=== PATIENT | female | born 1955 ===

== ENCOUNTER 2023-01-13 14:53 | Outpatient (CLI) | payer MEDICARE, SELFPAY ==
--- NOTE | ~2023-01-13 | XR_ITS ---
EXAMINATION: XR chest 2V 01/13/2023 15:32 INDICATION: Hemoptysis PROCEDURE: 2 view chest COMPARISON: No prior studies for comparison. FINDINGS: The lungs are clear. The cardiomediastinal silhouette is within normal limits. There are no pleural effusions. There is no pneumothorax suspected. IMPRESSION: 1: NO ACUTE CARDIOPULMONARY DISEASE. Reviewed, dictated and finalized at location L. ER MACHINE OPERATOR
[2023-01-13 15:32] LABS: Basophils Absolute Auto 0.1 K/mm3 (0.0-0.1); Basophils Percent Auto 0.7 % (0.2-1.2); Eosinophils Absolute Auto 0.3 K/mm3 (0-0.3); Eosinophils Percent Auto 1.6 % (0-4.4); Hematocrit 42.8 % (37.0-47.0); Hemoglobin 14.1 g/dL (12.0-15.0); Immature Granulocyte Absolute 0.06 K/mm3 (0.00-0.031); Immature Granulocyte Percent A 0.4 % (0-0.5); Lymphocytes Percent Auto 23.3 % (18.3-44.2); Mean Corpuscular HGB Conc 32.9 g/dl (32-36); Mean Corpuscular Hemoglobin 29.3 pg (26-34); Mean Platelet Volume 9.7 fl (7.4-10.4); Monocytes Absolute Auto 1.1 K/mm3 (0.1-0.6); Neutrophils Absolute Auto 10.7 K/mm3 (1.3-6.7); Platelet Count Result 421 k/mm3 (150-375); Red Blood Count 4.81 M/mm3 (4.2-5.4); Red Cell Distribution Width 13.9 % (11.5-14.5); White Blood Count 15.9 K/mm3 (4.5-10.0)
[2023-01-13 15:37] LABS: Appearance Urine Clear (Clear); Bacteria Urine None Seen /hpf; Bilirubin Urine Negative (Negative); Blood Urine 1+ (Negative); Color Urine Yellow (Yellow); Glucose Urine UA Negative (Negative); Ketones Urine Negative (Negative); Leukocyte Esterase Ur Negative LEU/UL (Negative); Nitrate Urine Negative (Negative); Non Pathogenic Casts 0-2; Protein Urine Negative (Negative); Specific Grav Ur 1.012 (1.001-1.035); Squamous Epithelial Cell Urine None seen /hpf (Few); Urobilinogen Urine 0.2 mg/dL (<2.0); WBC Urine 0-5 /hpf
[2023-01-13 15:42] LABS: Alanine Aminotransferase 19 U/L (6-35); Albumin Level 4.5 g/dL (3.5-5.1); Alkaline Phosphatase 90 U/L (38-126); Anion Gap 8 mmol/L (8-16); Aspartate Amino Transferase 28 U/L (14-36); Bilirubin,Total 0.6 mg/dL (0.2-1.3); Blood Urea Nitrogen 14 mg/dL (7-17); Calcium 9.4 mg/dL (8.4-10.2); Carbon Dioxide 27 mmol/L (22-30); Chloride 105 mmol/L (98-107); Estimated Glomerular Filt Rate 49; Glucose 87 mg/dL (65-110); Potassium 3.6 mmol/L (3.4-5.0); Sodium 140 mmol/L (137-145)
[2023-01-13 15:52] LABS: Add Urine Microscopic? YES
== END 2023-01-13 14:54 | disposition home or self-care (01) ==
PROVIDERS: PCP Family Medicine; Visit Provider Physician Assistant
DX: R04.2 Hemoptysis (principal); I10 Essential (primary) hypertension; R53.1 Weakness
CPT/HCPCS: 36415; 71046; 80053; 81001; 85025

== ENCOUNTER 2023-02-02 15:26 | Outpatient (CLI) | payer MEDICARE, SELFPAY ==
[2023-02-02 15:52] LABS: Basophils Absolute Auto 0.1 K/mm3 (0.0-0.1); Basophils Percent Auto 0.6 % (0.2-1.2); Eosinophils Absolute Auto 0.2 K/mm3 (0-0.3); Hematocrit 40.3 % (37.0-47.0); Hemoglobin 13.3 g/dL (12.0-15.0); Immature Granulocyte Absolute 0.03 K/mm3 (0.00-0.031); Immature Granulocyte Percent A 0.3 % (0-0.5); Lymphocytes Absolute Auto 4.32 K/mm3 (0.9-3.2); Lymphocytes Percent Auto 44.1 % (18.3-44.2); Mean Corpuscular Hemoglobin 29.1 pg (26-34); Mean Corpuscular Volume 88.2 fl (80-100); Mean Platelet Volume 9.4 fl (7.4-10.4); Monocytes Absolute Auto 0.8 K/mm3 (0.1-0.6); Monocytes Percent Auto 8.4 % (2.6-8.5); Neutrophils Absolute Auto 4.4 K/mm3 (1.3-6.7); Neutrophils Percent Auto 44.6 % (45.5-73.1); Platelet Count Result 411 k/mm3 (150-375); Red Blood Count 4.57 M/mm3 (4.2-5.4); Red Cell Distribution Width 14.2 % (11.5-14.5); White Blood Count 9.8 K/mm3 (4.5-10.0)
== END 2023-02-02 15:27 | disposition home or self-care (01) ==
LOC: ANHLAB 15:31
PROVIDERS: PCP Family Medicine; Visit Provider Physician Assistant
DX: D72.829 Elevated white blood cell count, unspecified (principal); I10 Essential (primary) hypertension
CPT/HCPCS: 36415; 85025

== ENCOUNTER 2023-03-11 15:46 | Outpatient (CLI) | payer MEDICARE, SELFPAY ==
--- NOTE | ~2023-03-11 | XR_ITS ---
EXAMINATION: XR lumbar spine 2-3V DATE: 03/11/2023 16:13 INDICATION: Low back pain. Right-sided sciatica. TECHNIQUE: 3 views of lumbar spine were obtained. COMPARISON: None. FINDINGS: There is 3 mm anterolisthesis of L3 on L4. Vertebral body heights are normal. There is mild ly decreased disc height at L3-L4. There is multilevel facet joint osteoarthritis, moderate to severe in lower lumbar spine. IMPRESSION: 1. Mild lumbar spondylosis. Reviewed, dictated and finalized at location E. GENERATION SPECIALIST IMPRESSION: 1. Mild lumbar spondylosis.
== END 2023-03-11 15:47 | disposition home or self-care (01) ==
LOC: ANHIMG 15:48
PROVIDERS: PCP Family Medicine; Visit Provider Physician Assistant
DX: M54.50 Low back pain, unspecified (principal); M43.06 Spondylolysis, lumbar region
CPT/HCPCS: 72100

== ENCOUNTER 2023-09-14 09:02 | Outpatient (CLI) | payer MEDICARE, SELFPAY ==
[2023-09-14 10:16] LABS: Hematocrit 42.8 % (37.0-47.0); Hemoglobin 14.5 g/dL (12.0-15.0); Mean Corpuscular HGB Conc 33.9 g/dl (32-36); Mean Corpuscular Hemoglobin 29.4 pg (26-34); Mean Corpuscular Volume 86.8 fl (80-100); Mean Platelet Volume 10.1 fl (7.4-10.4); Platelet Count Result 486 k/mm3 (150-375); Red Blood Count 4.93 M/mm3 (4.2-5.4); Red Cell Distribution Width 14.7 % (11.5-14.5)
[2023-09-14 10:38] LABS: Alanine Aminotransferase 16 U/L (6-35); Albumin Level 4.5 g/dL (3.5-5.1); Alkaline Phosphatase 77 U/L (38-126); Anion Gap 10 mmol/L (4-12); Aspartate Amino Transferase 26 U/L (14-36); Bilirubin,Total 0.5 mg/dL (0.2-1.3); Blood Urea Nitrogen 14 mg/dL (7-17); CRP < 0.5 mg/dL (<1.0); Calcium 9.5 mg/dL (8.4-10.2); Carbon Dioxide 30 mmol/L (22-30); Chloride 101 mmol/L (98-107); Cholesterol 246 mg/dL (0-200); Estimated Glomerular Filt Rate > 60; Glucose 83 mg/dL (65-110); HDL Direct 60 mg/dL; Potassium 3.4 mmol/L (3.4-5.0); Sodium 141 mmol/L (137-145); Triglycerides 109 mg/dL (<150)
[2023-09-14 10:47] LABS: LDL Cholesterol Direct 148 mg/dL
[2023-09-14 10:48] LABS: Erythrocyte Sedimentation Rate 1 mm/hr (0-20)
[2023-09-16 09:48] LABS: ANA Cascade Screen NEGATIVE (NEGATIVE)
== END 2023-09-14 09:03 | disposition home or self-care (01) ==
PROVIDERS: PCP Family Medicine; Visit Provider Physician Assistant
DX: Z72.0 Tobacco use (principal); I10 Essential (primary) hypertension; E78.5 Hyperlipidemia, unspecified; D75.839 Thrombocytosis, unspecified; M60.9 Myositis, unspecified
CPT/HCPCS: 36415; 80053; 80061; 85027; 85652; 86038; 86140; 86225; 86235; 86364

== ENCOUNTER 2024-04-12 10:28 | Outpatient (CLI) | payer MEDICARE, SELFPAY ==
[2024-04-12 11:15] LABS: Add Urine Microscopic? YES; Appearance Urine Clear (Clear); Bilirubin Urine Negative (Negative); Blood Urine Negative (Negative); Color Urine Dark Yellow (Yellow); Glucose Urine UA Negative (Negative); Ketones Urine Negative (Negative); Leukocyte Esterase Ur Negative LEU/UL (Negative); Nitrate Urine Negative (Negative); Protein Urine Negative (Negative); Specific Grav Ur 1.015 (1.001-1.035); Urobilinogen Urine 0.2 mg/dL (<2.0); pH Urine 6.5 (5.0-9.0)
[2024-04-12 11:44] LABS: Basophils Absolute Auto 0.1 K/mm3 (0.0-0.1); Basophils Percent Auto 0.6 % (0.2-1.2); Eosinophils Absolute Auto 0.2 K/mm3 (0-0.3); Eosinophils Percent Auto 2.4 % (0-4.4); Hematocrit 41.4 % (37.0-47.0); Hemoglobin 14.2 g/dL (12.0-15.0); Immature Granulocyte Absolute 0.03 K/mm3 (0.00-0.031); Immature Granulocyte Percent A 0.3 % (0-0.5); Lymphocytes Absolute Auto 3.33 K/mm3 (0.9-3.2); Lymphocytes Percent Auto 38.8 % (18.3-44.2); Mean Corpuscular HGB Conc 34.3 g/dl (32-36); Mean Corpuscular Volume 87.3 fl (80-100); Mean Platelet Volume 9.8 fl (7.4-10.4); Monocytes Absolute Auto 0.7 K/mm3 (0.1-0.6); Monocytes Percent Auto 7.8 % (2.6-8.5); Neutrophils Absolute Auto 4.3 K/mm3 (1.3-6.7); Neutrophils Percent Auto 50.1 % (45.5-73.1); Platelet Count Result 449 k/mm3 (150-375); Red Blood Count 4.74 M/mm3 (4.2-5.4); Red Cell Distribution Width 14.4 % (11.5-14.5); White Blood Count 8.6 K/mm3 (4.5-10.0)
[2024-04-12 12:03] LABS: Alanine Aminotransferase 17 U/L (6-35); Albumin Level 4.4 g/dL (3.5-5.1); Alkaline Phosphatase 86 U/L (38-126); Anion Gap 7 mmol/L (4-12); Aspartate Amino Transferase 27 U/L (14-36); Bilirubin,Total 0.7 mg/dL (0.2-1.3); Blood Urea Nitrogen 17 mg/dL (7-17); Calcium 9.7 mg/dL (8.4-10.2); Carbon Dioxide 30 mmol/L (22-30); Chloride 104 mmol/L (98-107); Cholesterol 167 mg/dL (0-200); Estimated Glomerular Filt Rate > 60; Glucose 83 mg/dL (65-110); HDL Direct 62 mg/dL; Potassium 3.6 mmol/L (3.4-5.0); Sodium 141 mmol/L (137-145); Triglycerides 67 mg/dL (<150)
[2024-04-12 12:14] LABS: LDL Cholesterol Direct 79 mg/dL
--- OUTSIDE RECORDS SUMMARY | 2024-04-12 12:16 | XMS_ITS | Referral Summary ---
Author Organization [facility] Address [address] [place] [address] Care Team Providers Care Biodiesel Engine Specialist Name Role Phone Marko Duvall MD Primary Care Provider [phone] Source Comments [facility],non-owned Affiliates and Associated Physician Practices is amultiple site organization consisting of ambulatory clinics and hospital sitesin [place], [place], [place] and [place]. This disclosure is being madepursuant to the Care Everywhere program and may not contain all information available regarding this patient. Last updated 17.[facility] Allergies No known active allergies Medications * Be aware that medications may not be up to date on this document. Alwaysverify current medications with the patient. Medication Sig Dispensed Refills Start Date End Date Status lansoprazole (PREVACID) 30 MG capsule 09/29/2018 Active albuterol HFA (PROVENTIL;VENTOL IN;PROAIR) 108 (90 Base) MCG/ACT inhaler Inhale 2 puffs by mouth every 4 hours 01/18/2020 Active triamterene-hydro CHLOROthiazide (DYAZIDE) 37.5-25 MG capsule Take 1 capsule by mouth once daily 03/15/2020 Active oxyCODONE, immediate release, (ROXICODONE) 5 MG tablet Take 1 (one) tablet by mouth every 6 hours as needed 15 tablet 08/01/2020 Active Additional Information Patient not taking.Reported on 09/03/2020 acetaminophen (TYLENOL) 325 MG tablet Take 2 (two) tablets by mouth every 6 hours Maximum allowable Acetaminophen amount = 4 Grams (4000 mg) / 24 hours. 30 tablet 1 08/01/2020 Active docusate sodium (COLACE) 100 MG capsule Take 1 (one) capsule by mouth 2 times daily 60 capsule 1 08/01/2020 Active polyethylene glycol 3350 (MIRALAX) 17 g packet Take 17 (seventeen) g by mouth once daily as needed for Constipation 60 packet 1 08/01/2020 Active Additional Information Patient not taking.Reported on 09/03/2020 ibuprofen (MOTRIN) 600 MG tablet Take 1 (one) tablet by mouth every 6 hours as needed for Pain 30 tablet 08/01/2020 Active meloxicam (MOBIC) 7.5 MG tablet Take 1 (one) tablet by mouth 2 times daily 30 tablet 08/09/2020 Active Additional Information Patient not taking.Reported on 09/03/2020 diclofenac sodium (VOLTAREN) 1 % gel Apply 2 (two) g to affected area 4 times daily 100 g 08/09/2020 Active Additional Information Patient not taking.Reported on 09/03/2020 estradiol (ESTRACE) 0.1 MG/GM vaginal cream Insert 1g into the vagina nightly for 2 weeks. Then insert 1g into the vagina two times a week thereafter. 1 tube 3 09/03/2020 Active Active Problems Problem Noted Date Diagnosed Date H/O: hysterectomy 07/31/2020 Thrombocythemia 07/13/2020 Allergic rhinitis 03/07/2019 Essential hypertension 03/07/2019 Gastroesophageal reflux disease 03/07/2019 Hyperlipidemia 03/07/2019 Obesity 03/07/2019 Smoker 03/07/2019 Left posterior capsular opacification 01/27/2019 Hiatal hernia 07/07/2017 Lesion of liver 07/07/2017 Chronic obstructive lung disease 01/26/2017 Astigmatism of both eyes 12/03/2016 Overview (05/18/2017): O regulatory upload 12/02 Cataract extraction status of left eye 6 Age-related nuclear cataract of left eye 016 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7 F) 08/09/2020 11:50 AM CDT Respiratory Rate 18 08/09/2020 11:5 0 AM CDT Oxygen Saturation 100% 08/09/2020 11: 50 AM CDT Inhaled Oxygen Concentration - - Weight 85.6 kg (188 lb 12.8 oz) 09/03/2020 1:46 PM CDT Height 161.3 cm (5' 3.5 ) 09/03/2020 1:46 PM CDT Body Mass Index 32.92 09/03/2020 1:46 PM CDT Plan of Treatment Not on file Procedures Procedure Name Priority Date/Time Associated Diagnosis Comments COMPREHENSIVE METABOLIC PANEL STAT 08/09/2020 12:54 PM CDT from Last 3 Months or Most Recently Relevant to Health Maintenance Results * COMPREHENSIVE METABOLIC PANEL (08/09/2020 12:54 PM CDT) Glucose 90 70 - 105 mg/dL 08/09/2020 1:29 PM CDT [facility] Sodium 139 136 - 145 mmol/L 08/09/2020 1:29 PM CDT [facility] Potassium 3.9 3.5 - 5.1 mmol/L 08/09/2020 1:29 PM CDT [facility] Chloride 103 98 - 107 mmol/L 08/09/2020 1:29 PM CDT [facility] CO2 27 23 - 31 mmol/L 08/09/2020 1:29 PM CDT [facility] Calcium 10.3 8.4 - 10.4 mg/dL 08/09/2020 1:29 PM CDT [facility] Anion Gap 9 8 - 18 mmol/L 08/09/2020 1:29 PM CDT [facility] BUN 13 9.8 - 20.1 mg/dL 08/09/2020 1:29 PM CDT [facility] Creatinine 0.92 0.57 - 1.11 mg/dL 08/09/2020 1:29 PM CDT [facility] Alkaline Phosphatase 86 40 - 150 U/L 08/09/2020 1:29 PM CDT [facility] ALT 19 0 - 61 U/L 08/09/2020 1:29 PM CDT [facility] AST 14 5 - 34 U/L 08/09/2020 1:29 PM CDT [facility] Protein Total 7.7 6.4 - 8.3 gm/dL 08/09/2020 1:29 PM CDT [facility] Albumin 4.2 3.2 - 4.6 gm/dL 08/09/2020 1:29 PM CDT [facility] Bilirubin Total 0.3 0.2 - 1.2 mg/dL 08/09/2020 1:29 PM CDT [facility] eGFR by MDRD >60 >60 mL/min/1.7 3m2 08/09/2020 1:29 PM CDT [facility] eGFR by MDRD >60 >60 mL/min/1.7 3m2 08/09/2020 1:29 PM CDT [facility] Blood BLOOD SPECIMEN / Unknown Venipuncture / Unknown 08/09/2020 12:54 PM CDT 08/09/2020 1:11 PM CDT Nidia Melendez PA-C LAB - CHEMISTRY OR DERABLES [facility] [address] [place] [address] from Last 3 Months or Most Recently Relevant to Health Maintenance Care Teams Biodiesel Engine Specialist Relationship Specialty Start Date End Date Marko Duvall MD [address] [facility] [address] [place] [phone] PCP - General 10/09/14
--- OUTSIDE RECORDS SUMMARY | 2024-04-12 12:16 | XMS_ITS | Encounter Summary ---
Author Organization [facility] Address [address] [place] [address] Care Team Providers Care Cable Installer Repairer Name Role Phone Unavailable Primary Care Provider Unavailabl e Prior Encounters Date Type Department Care Team Description 08/12/2021 1:00 PM CDT Office Visit [facility] [address] [place] [address] Chandu Rao DDS 07/24/2021 1:00 PM CDT Office Visit [facility] [address] [place] [address] Tiffanie Cho, [facility] 04/24/2021 1:00 PM BUSINESS LEADER Office Visit [facility] [address] [place] [address] Crystal Pimentel, DIANA 04/24/2021 1:00 PM BUSINESS LEADER Office Visit [facility] [address] [place] [address] Tiffanie Cho, [facility] 01/23/2021 Travel 01/23/2021 3:00 PM BUSINESS LEADER Office Visit [facility] [address] [place] [address] Tiffanie Cho [facility] 10/24/2020 Travel 10/24/2020 2:00 PM CDT Office Visit [facility] [address] [place] [address] Tiffanie Cho, [facility] 09/25/2020 2:30 PM CDT Office Visit [facility] [address] [place] [address] ChoTiffanie, TALYA 09/25/2020 Travel 09/25/2020 2:00 PM CDT Office Visit [facility] [address] [place] [address] Crystal Pimentel, DMD Last Filed Vital Signs Vital Sign Reading Time Taken Comments Blood Pressure 124/72 07/24/2021 12:56 PM CDT Pulse 77 07/24/2021 12:56 PM CDT Temperature 35.9 C (96.6 F) 01/23/2021 3:16 PM BUSINESS LEADER Respiratory Rate - - Oxygen Saturation - - Inhaled Oxygen Concentration - - Weight - - Height - - Body Mass Index - - Plan of Treatment Not on file Procedures Procedure Name Priority Date/Time Associated Diagnosis Comments 8 ML RESIN-BASED COMPOSITE - TWO SURFACES, ANTERIOR Routine 08/12/2021 1:00 PM CDT 9 ML RESIN-BASED COMPOSITE - TWO SURFACES, ANTERIOR Routine 08/12/2021 1:00 PM CDT ORAL HYGIENE INSTRUCTIONS Routine 2021 1:00 PM CDT PERIO MAINTENANCE Routine 07/24/2021 1:0 0 PM CDT PERIODIC ORAL EVALUATION - ESTABLISHED PATIENT Routine 04/24/2021 1:00 PM BUSINESS LEADER ORAL HYGIENE INSTRUCTIONS Routine 2021 1:00 PM BUSINESS LEADER PERIO MAINTENANCE Routine 04/24/2021 1:0 0 PM BUSINESS LEADER ORAL HYGIENE INSTRUCTIONS Routine 2020 3:00 PM BUSINESS LEADER PERIO MAINTENANCE Routine 01/23/2021 3:0 0 PM BUSINESS LEADER LL SHRUTI DECON ONE TO THREE TEETH/QUAD Routine 10/24/2020 2:00 PM CDT LL ANTIBACT IRR/QUAD Routine 10/24/2020 2:00 PM CDT LL PERIODONTAL SCALING AND ROOT PLANING - ONE TO THREE TEETH PER QUADRANT Routine 10/24/2020 2:00 PM CDT ORAL HYGIENE INSTRUCTIONS Routine 2020 2:00 PM CDT TOPICAL APPLICATION OF FLUORIDE VARNISH Routine 10/24/2020 2:00 PM CDT UL SHRUTI DECON/QD Routine 10/24/2020 2:00 PM CDT UL ANTIBACT IRR/QUAD Routine 10/24/2020 2:00 PM CDT UL PERIODONTAL SCALING AND ROOT PLANING - FOUR OR MORE TEETH PER QUADRANT Routine 10/24/2020 2:00 PM CDT LR SHRUTI DECON ONE TO THREE TEETH/QUAD Routine 09/25/2020 2:30 PM CDT UR SHRUTI DECON ONE TO THREE TEETH/QUAD Routine 09/25/2020 2:30 PM CDT LR ANTIBACT IRR/QUAD Routine 09/25/2020 2:30 PM CDT UR ANTIBACT IRR/QUAD Routine 09/25/2020 2:30 PM CDT LR PERIODONTAL SCALING AND ROOT PLANING - ONE TO THREE TEETH PER QUADRANT Routine 09/25/2020 2:30 PM CDT UR PERIODONTAL SCALING AND ROOT PLANING - ONE TO THREE TEETH PER QUADRANT Routine 09/25/2020 2:30 PM CDT INTRAORAL PHOTO Routine 09/25/2020 2:00 PM CDT INTRAORAL PHOTO Routine 09/25/2020 2:00 PM CDT INTRAORAL PHOTO Routine 09/25/2020 2:00 PM CDT INTRAORAL PHOTO Routine 09/25/2020 2:00 PM CDT PANORAMIC RADIOGRAPHIC IMAGE Routine 09/25/2020 2:00 PM CDT INTRAORAL - COMPREHENSIVE SERIES OF RADIOGRAPHIC IMAGES Routine 09/25/2020 2:00 PM CDT COMPREHENSIVE ORAL EVALUATION - NEW OR ESTABLISHED PATIENT Routine 09/25/2020 2:00 PM CDT Visit Diagnoses Not on file Insurance [facility] PPO
--- OUTSIDE RECORDS SUMMARY | 2024-04-12 12:16 | XMS_ITS | Clinical Summary ---
Author Organization [facility] Address [address] [place] [address] Care Team Providers Care Supervisor Spring Up Name Role Phone Unavailable Primary Care Provider Unavailabl e Allergies No known active allergies Medications acetaminophen (TYLENOL) 325 mg tablet Take 650 mg by mouth. 1 Active albuterol HFA (PROVENTIL HFA;VENTOLIN HFA) 90 mcg/actuation inhaler Inhale 2 puffs. 0 Active diclofenac (VOLTAREN) 1 % topical gel Apply 2 g topically. 1 Active docusate sodium (COLACE) 100 mg capsule Take 100 mg by mouth twice a day. 1 Active estradioL (ESTRACE) 0.01 % (0.1 mg/gram) vaginal cream Insert 1g into the vagina nightly for 2 weeks. Then insert 1g into the vagina two times a week thereafter. 1 Active ibuprofen (ADVIL,MOTRIN) 600 mg tablet Take 600 mg by mouth every 6 (six) hours if needed. 1 Active meloxicam (MOBIC) 7.5 mg tablet Take 7.5 mg by mouth twice a day. 1 Active oxyCODONE (ROXICODONE) 5 mg immediate release tablet Take 5 mg by mouth every 6 (six) hours if needed. 1 Active polyethylene glycol (GLYCOLAX) 17 gram/dose powder Take 17 g by mouth 1 (one) time each day if needed. 1 Active triamterene-hyd rochlorothiazid (DYAZIDE) 37.5-25 mg capsule Take 1 capsule by mouth 1 (one) time each day. 1 Active lansoprazole (PREVACID) [address] capsule 2 Active levoFLOXacin (LEVAQUIN) 500 mg tablet 1 Active methylPREDNISol one (MEDROL DOSPAK) 4 mg tablet follow package directions 1 Active naproxen (NAPROSYN) 500 mg tablet Take 500 mg by mouth 2 (two) times a day if needed. 2 Active Active Problems Problem Noted Date Diagnosed Date H/O: hysterectomy 07/31/2020 Thrombocythemia 07/13/2020 Allergic rhinitis 03/07/2019 Essential hypertension 03/07/2019 Gastroesophageal reflux disease 03/07/2019 Hyperlipidemia 03/07/2019 Obesity 03/07/2019 Smoker 03/07/2019 Left posterior capsular opacification 01/27/2019 Hiatal hernia 07/07/2017 Lesion of liver 07/07/2017 Chronic obstructive lung disease (HCC) 7 Astigmatism of both eyes 12/03/2016 Overview (09/25/2020): IMO regulatory upload 12/02 Cataract extraction status of left eye 6 Age-related nuclear cataract of left eye 016 Pellucid marginal degeneration of cornea, 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 Social History Tobacco Use Types Packs/Day Years Used Date Smoking Tobacco: Every Day Cigarettes 1 5 Cigars Smokeless Tobacco: Never Alcohol Use Standard Drinks/Week Comments Never 0 (1 standard drink = 0.6 oz pur e alcohol) Comments Unknown Sex and Gender Information Value Date Recorded Sex Assigned at Not on file Legal Sex Female 1:47 PM PDT Gender Identity Not on file Sexual Orientation Not on file Last Filed Vital Signs Vital Sign Reading Time Taken Comments Blood Pressure 124/72 07/24/2021 12:56 PM CDT Pulse 77 07/24/2021 12:56 PM CDT Temperature 35.9 C (96.6 F) 01/23/2021 3:16 PM HOSPITAL NURSING ASSISTANT Respiratory Rate - - Oxygen Saturation - - Inhaled Oxygen Concentration - - Weight - - Height - - Body Mass Index - - Plan of Treatment Health Maintenance Due Date Last Done Comments Dental X-Ray: Bitewings 03/29/2021 09/25/2020 Periodontal Maintenance 10/25/2021 07/25/19 22, 04/24/2021, 01/23/2021 Dental Oral Exam 10/26/2021 04/24/2021, 09/25/2020 Scaling and Root Planing 11/07/2022 021, 10/24/2020, 09/25/2020, Additional history exists Dental X-Ray: Full Mouth 09/27/2023 09/25/2020 Dental X-Ray: Panoramic 09/27/2023 09/25/2020 Meningococcal B Vaccine Aged Out No l onger eligible based on patient's age to complete this topic Procedures Procedure Name Priority Date/Time Associated Diagnosis Comments PERIO MAINTENANCE Routine 07/24/2021 1:0 0 PM CDT PERIODIC ORAL EVALUATION - ESTABLISHED PATIENT Routine 04/24/2021 1:00 PM HOSPITAL NURSING ASSISTANT UL PERIODONTAL SCALING AND ROOT PLANING - FOUR OR MORE TEETH PER QUADRANT Routine 10/24/2020 2:00 PM CDT PANORAMIC RADIOGRAPHIC IMAGE Routine 09/25/2020 2:00 PM CDT INTRAORAL - COMPREHENSIVE SERIES OF RADIOGRAPHIC IMAGES Routine 09/25/2020 2:00 PM CDT from Last 3 Months or Most Recently Relevant to Health Maintenance Insurance [facility] P[facility]
--- OUTSIDE RECORDS SUMMARY | 2024-04-12 12:16 | XMS_ITS | Clinical Summary ---
Author Organization [facility] Address [address] [place] [address] Care Team Providers Care Rotor Casting Machine Operator Name Role Phone Marko Duvall MD Primary Care Provider Source Comments [facility],non-owned Affiliates and Associated Physician Practices is amultiple site organization consisting of ambulatory clinics and hospital sitesin [place], [place], [place] and [place]. This disclosure is being madepursuant to the Care Everywhere program and may not contain all information available regarding this patient. Last updated 17.[facility] Allergies No known active allergies Medications * [...] marginal degeneration of cornea, 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 Family History Medical History Relation Name Comments CVA Brother 1 Heart Disease Brother 2 Heart Failure Brother 2 Heart Surgery Brother 2 Cancer - Colon Father Hypertension Mother Heart Disease Other None Known Sister Status: d Diabetes Neg Hx Glaucoma Neg Hx Macular Degeneration Neg Hx Relation Name Status Comments Brother 1 Brother 2 Father Mother Other Sister Social History Tobacco Use Types Packs/Day Years [...] 09/03/2020 1:46 PM CDT Plan of Treatment Health Maintenance Due Date Last Done Comments BONE DENSITY TESTING 1954 COLOGUARD (AGES 45-75) - COL ON CA SCREENING 1954 COLON MONITORING 1954 COLONOSCOPY - COLON CA SCREENING 1954 CT COLONOGRAPHY - COLON CA SCREENING 1954 Colorectal Cancer Screening 1954 FIT - COLON CA SCREENING 1954 FLEX SIG - COLON CA SCREENING 1954 LIPID TESTING 1954 MAMMOGRAM 1954 HEPATITIS C SCREENING 07/14/1972 DTAP/TDAP/TD VACCINES (1 - Tdap) 1973 PNEUMOCOCCAL VACCINE 50+ (1 of 2 - PCV) 1973 ZOSTER VACCINE (1 of 2) 2004 Respiratory Syncytial Virus (RSV) Vaccine Pt: or over 60 yrs (1 - Risk 60-74 years 1-dose series) 2014 SCREENING FOR DIABETES 08/10/2023 08/09/2020 COVID-19 VACCINE (1 - 2023-2 5 season) 2023 INFLUENZA VACCINE (#1) 2023 DEPRESSION SCREENING 02/17/2024 HEPATITIS B VACCINE Aged Out No longe r eligible based on patient's age to complete this topic HIB VACCINE Aged Out No longer eligi ble based on patient's age to complete this topic HPV VACCINE Aged Out No longer eligi ble based on patient's age to complete this topic MENINGOCOCCAL (Group B) VACCINE Aged Out No longer eligible based on patient's age to complete this topic MENINGOCOCCAL VACCINE Aged Out No nathanael sudeep eligible based on patient's age to complete this topic Procedures Procedure Name Priority Date/Time Associated Diagnosis Comments COMPREHENSIVE METABOLIC PANEL STAT 08/09/2020 12:54 PM CDT from Last 3 Months or Most Recently Relevant to Health Maintenance Results * COMPREHENSIVE METABOLIC PANEL (08/09/2020 12:54 PM CDT) Pathologist [facility] Glucose 90 70 - 105 mg/dL 08/09/2020 1:29 PM CDT [facility] Sodium 139 136 - 145 mmol/L 08/09/2020 1:29 PM CDT [facility] Potassium 3.9 3.5 - 5.1 mmol/L 08/09/2020 1:29 PM CDT [facility] Chloride 103 98 - 107 mmol/L 08/09/2020 1:29 PM CDT [facility] CO2 27 23 - 31 mmol/L 08/09/2020 1:29 PM CDT [facility] Calcium 10.3 8.4 - 10.4 mg/dL 08/09/2020 1:29 PM CDT [facility] Anion Gap 9 8 - 18 mmol/L 08/09/2020 1:29 PM CDT [facility] BUN 13 9.8 - 20.1 mg/dL 08/09/2020 1:29 PM CDT [facility] Creatinine 0.92 0.57 - 1.11 mg/dL 08/09/2020 1:29 PM CDT [facility] Alkaline Phosphatase 86 40 - 150 [...] 3m2 08/09/2020 1:29 PM CDT [facility] Blood BLOOD SPECIMEN / Unknown Venipuncture / Unknown 08/09/2020 12:54 PM CDT 08/09/2020 1:11 PM CDT Nidia Melendez PA-C LAB - CHEMISTRY OR DERABLES Performing Organization Address City/State/[facility] Co de Phone Number [facility] [address] [place] [address] from Last 3 Months or Most Recently Relevant to Health Maintenance Care Teams Rotor Casting Machine Operator Relationship Specialty Start Date End Date Marko Duvall MD [address] [facility] [address] [place] [id number] PCP - General 10/09/14
--- OUTSIDE RECORDS SUMMARY | 2024-04-12 12:16 | XMS_ITS | CONTINUITY OF CARE DOCUMENT ---
Author Name yaya javier Address Unknown Organization [facility] Address [address] [facility] [address] [place] [address] Phone [phone] Care Team Providers Care Second Helper Name Role Phone Mick HALEY, Higinio Unavailable NEETU HALEY, ALLYSON Phillips Unavailable ALLYSON DE ANDA MD Unavailable INSURANCE PROVIDERS Payer name Policy type / Coverage type [place] red democrat ID AARP MEDICARE ADVANTAGE HMO-POS HMO [id number]
== END 2024-04-12 10:29 | disposition home or self-care (01) ==
PROVIDERS: PCP Family Medicine; Visit Provider Physician Assistant
DX: E78.5 Hyperlipidemia, unspecified (principal); I10 Essential (primary) hypertension; R10.9 Unspecified abdominal pain
CPT/HCPCS: 36415; 80053; 80061; 81001; 85025

== ENCOUNTER 2024-08-15 10:54 | Outpatient (CLI) | payer MEDICARE, SELFPAY ==
[2024-08-15 11:16] LABS: Basophils Absolute Auto 0.1 K/mm3 (0.0-0.1); Basophils Percent Auto 0.9 % (0.2-1.2); Eosinophils Absolute Auto 0.3 K/mm3 (0-0.3); Eosinophils Percent Auto 3.5 % (0-4.4); Hematocrit 42.8 % (37.0-47.0); Hemoglobin 14.5 g/dL (12.0-15.0); Immature Granulocyte Absolute 0.02 K/mm3 (0.00-0.031); Immature Granulocyte Percent A 0.2 % (0-0.5); Lymphocytes Absolute Auto 3.14 K/mm3 (0.9-3.2); Mean Corpuscular HGB Conc 33.9 g/dl (32-36); Mean Corpuscular Hemoglobin 29.8 pg (26-34); Mean Corpuscular Volume 88.1 fl (80-100); Mean Platelet Volume 9.2 fl (7.4-10.4); Monocytes Absolute Auto 0.6 K/mm3 (0.1-0.6); Monocytes Percent Auto 6.8 % (2.6-8.5); Neutrophils Percent Auto 49.6 % (45.5-73.1); Platelet Count Result 444 k/mm3 (150-375); Red Blood Count 4.86 M/mm3 (4.2-5.4); Red Cell Distribution Width 13.3 % (11.5-14.5); White Blood Count 8.1 K/mm3 (4.5-10.0)
--- OUTSIDE RECORDS SUMMARY | 2024-08-15 11:32 | XMS_ITS | Encounter Summary ---
Author Organization [facility] Address [address] [place] [address] Care Team Providers Care Printed Circuit Boards Router Name Role Phone Unavailable Primary Care Provider Unavailabl e Prior Encounters Date Type Department Care Team Description 08/12/2021 1:00 PM CDT Office Visit [facility] [address] [place] [address] Chandu Rao DDS 07/24/2021 1:00 PM CDT Office Visit [facility] [address] [place] [address] Tiffanie Cho, [facility] 04/24/2021 1:00 PM PRE SALES TECHNICAL CONSULTANT Office Visit [facility] [address] [place] [address] Crystal Pimentel, [facility] 04/24/2021 1:00 PM PRE SALES TECHNICAL CONSULTANT Office Visit [facility] [address] [place] [address] Tiffanie Cho, [facility] 01/23/2021 Travel 01/23/2021 3:00 PM PRE SALES TECHNICAL CONSULTANT Office Visit [facility] [address] [place] [address] Tiffanie Cho, [facility] 10/24/2020 Travel 10/24/2020 2:00 PM CDT Office Visit [facility] [address] [place] [address] Tiffanie Cho, [facility] 09/25/2020 2:30 PM CDT Office Visit [facility] [address] [place] [address] Tiffanie Cho, TALYA 09/25/2020 Travel 09/25/2020 2:00 PM CDT Office Visit [facility] [place] [phone] Crystal Pimentel, DMD Last Filed Vital Signs Vital Sign Reading Time Taken Comments Blood Pressure 124/72 07/24/2021 12:56 PM CDT Pulse 77 07/24/2021 12:56 PM CDT Temperature 35.9 C (96.6 F) 01/23/2021 3:16 PM PRE SALES TECHNICAL CONSULTANT Respiratory Rate - - Oxygen Saturation - [...] - ESTABLISHED PATIENT Routine 04/24/2021 1:00 PM PRE SALES TECHNICAL CONSULTANT ORAL HYGIENE INSTRUCTIONS Routine 2021 1:00 PM PRE SALES TECHNICAL CONSULTANT PERIO MAINTENANCE Routine 04/24/2021 1:0 0 PM PRE SALES TECHNICAL CONSULTANT ORAL HYGIENE INSTRUCTIONS Routine 2020 3:00 PM PRE SALES TECHNICAL CONSULTANT PERIO MAINTENANCE Routine 01/23/2021 3:0 0 PM PRE SALES TECHNICAL CONSULTANT LL SHRUTI DECON ONE TO THREE TEETH/QUAD [...] CDT Visit Diagnoses Not on file Insurance [facility] PPO
--- OUTSIDE RECORDS SUMMARY | 2024-08-15 11:32 | XMS_ITS | Clinical Summary ---
Author Organization [facility] (Formerly [facility]) Rhona goss Keelydorie Address [address] [place] [address] Care Team Providers Care Title Insurance Agent Name Role Phone Unavailable Primary Care Provider Unavailabl e Allergies No known active allergies Medications atorvastatin (LIPITOR) 10 mg tablet Take by mouth. 04/02/2022 Active lansoprazole (PREVACID SoluTab) 30 mg Tablet,Rapid Dissolve, DR Take by mouth. 04/02/2022 Active triamterene-hydr oCHLOROthiazide (DYAZIDE) 37.5-25 mg capsule Take by mouth. 04/07/2022 Active Active Problems No known active problems Encounters Date Type Department Care Team Description 08/15/2024 10:30 AM CDT Office Visit [facility] ([facility] Oncology and Hematology - Juan Carlos [address] [place] [address] [place] [id number] Bola Kaiser MD Essential thrombocytosis (CMS/HCC) (Primary Dx) from Last 3 Months Family History Medical History Relation Name Comments Heart Disease Brother 1 Heart Disease Brother 2 Heart Disease Brother 3 No Known Problems Child Prostate Cancer Father Relation Name Status Comments Brother 1 Alive Brother 2 Alive Brother 3 Alive Child Alive Father Mother Alive Sister Alive Social History Tobacco Use Types Packs/Day Years Used Date Smoking Tobacco: Every Day Cigars Smokeless Tobacco: Never Tobacco Cessation:Ready to Q uit: Not Asked; Counseling Given: Not Answered Alcohol Use Standard Drinks/Week Comments Yes 0 (1 standard drink = 0.6 oz pur e alcohol) occasional Comments Unknown Sex and Gender Information Value Date Recorded Sex Assigned at Not on file Legal Sex Female 12:02 PM [employer] Gender Identity Not on file Sexual Orientation Not on file Last Filed Vital Signs Vital Sign Reading Time Taken Comments Blood Pressure 131/81 08/15/2024 10:10 AM CDT Pulse 84 08/15/2024 10:10 AM CDT Temperature 36.5 C (97.7 F) 08/15/2024 10:10 AM CDT Respiratory Rate 15 08/15/2024 10:10 AM CDT Oxygen Saturation 96% 08/15/2024 10:10 AM CDT Inhaled Oxygen Concentration - - Weight 79.5 kg (175 lb 4.8 oz) 08/15/2024 10:10 AM CDT Height 160 cm (5' 3) 08/15/2024 10:10 AM CDT Body Mass Index 31.05 08/15/2024 10:10 AM CDT Plan of Treatment Upcoming Encounters Date Type Department Care Team (Late st Contact Info) Description 08/29/2024 4:30 PM CDT Telephone Check Up [facility] ([facility] Oncology and Hematology [facility] [address] [facility] [address] [place] [phone] Bola Kaiser MD [address] [facility] [address] [place] [address] Health Maintenance Due Date Last Done Comments DTAP/TDAP/TD VACCINES (1 - Tdap) 1973 BREAST CANCER SCREENING 1994 COLORECTAL SCREENING 07/20/1999 Colorectal Cancer Screening 07/20/1999 FIT-DNA Q 3 years 07/20/1999 FIT/FOBT Q 1 year 07/20/1999 Flex Sig/CT Colonography Q 5 years 07/20/1999 PNEUMOCOCCAL VACCINE 50+ YEARS (1 of 1 - PCV) 07/20/19 05 ZOSTER VACCINE (1 of 2) 2004 OSTEOPOROSIS SCREENING 07/20/2019 INFLUENZA VACCINE (#1) 2023 Medicare [place] Prev entative Visit/Annual Wellness Visit 02/17/2024 RSV VACCINE (60+ or ) (1 - 1-dose 75+ series) 2029 Insurance [facility] [id number]
--- OUTSIDE RECORDS SUMMARY | 2024-08-15 11:32 | XMS_ITS | Data Portability ---
Author Organization [place] [facility], Main Office Address [address] [place] [address] Care Team Providers Care Vendor Specialist Name Role Phone HEVER ELIZONDO Primary Care Provider HEVER ELIZONDO Referring Provider Assessment Encounter Date Assessment Date Assessment LastModified by Organization Details LastModified Time 05/27/2023 05/27/2023 67-year-old patient presents today with bilateral shoulder pain that has been going on since last February but has recently gotten worse in the last month. She states she lifted a case of water and has had increased pain ever since. she presented to her primary care physician who ordered physical therapy, she was going 3x a week but she states her arms hurt too much to continue it. She has also tried naproxen, oral steroids, and now an antibiotic. Review of systems per patient questionnaire Imaging: X-rays reviewed show no acute bony abnormalities, no fracture. Preserved joint spaces throughout. Physical exam: No pain with palpitation around the shoulders. Range of motion 140/30/ back pocket bilaterally. 5/5 rotator cuff strength. Positive Mark's, Neer's Calzada. Sensation intact throughout. We discussed the options today could include continuing physical therapy, cortisone injection, or MRI for surgical repair. She is unsure if she wants to return to physical therapy. She has a fear of needles and does not want a cortisone injection. She also is not interested in an MRI. We discussed that she can think about these treatment options and let us know what she would like to try. We can see her back as needed for pain. She is in agreement with this plan. [email or web address] Not available 05/28/2023 21:28:37 06/05/2023 06/05/2023 The patient has bilateral shoulder pain due to rotator cuff tendinitis. Previous x-rays do show some glenohumeral osteoarthritis both shoulders with downward sloping acromion type 2. Osteoarthritis looks a bit worse on the right than the left. The patient has decided to proceed with cortisone she is very anxious and tearful throughout the procedure but we were able to get through it. Under sterile conditions I injected the patient's bilateral shoulders into the subacromial spaces with 4 cc 0.5% bupivacaine and 20 mg of Kenalog each. Patient tolerated procedure fairly well despite being very anxious and tearful. She will see Dr. Espinoza back in 6 weeks for further evaluation and treatment recommendations if necessary. The patient voiced understanding agrees above plan she will call for any further problems difficulties or questions. [email or web address] Not available 06/05/2023 12:20:17 07/15/2023 07/15/2023 67-year-old raymond avitia presents for follow-up of her bilateral shoulders, left worse than right. At her last visit, she got bilateral cortisone injections in May. These lasted for about 4 weeks. She is still taking naproxen. She reports overall feeling better, but still can not fully lift and still has pain when sleeping on the side. He still has pain with daily activities. Range of motion 130/20/back pocket. She has 5- out of 5 elevation, otherwise good rotator cuff strength, positive Mark. Positive Neer, Calzada, Clayton. Neurovascular intact. She had some temporary improvement with the cortisone injection. We discussed that we can either continue conservative management, or proceed with MRI to look for anything structural that can be fixed. She states that she does not want surgery or any other procedure for the shoulder. Thus we will continue conservative management with meloxicam. She does not want formal physical therapy so we gave her shoulder home exercise program printout to do. She may follow-up as needed. [email or web address] Not available 07/15/2023 18:32:59 Plan of Treatment Reminders Order Date Submit Date Provider Last Modified By Organization Details Last Modified Time Details Appointments None recorded. Lab None recorded. Referral None recorded. Procedures injection/a spiration joint/bursa (PROC) 2023 024 [email or web address] In-Office Order, Internal Use Only DO Not Attach Compendium DO Not Attach Compendium, Do Not Delete/merge, [id number] 4 10:55:36 Surgeries None recorded. Imaging XR, shoulder, 2 or more view 2023 024 [email or web address] [facility] [place], [address], [place], [address], 4 21:22:59 Medication Orders meloxicam 15 mg tablet 2023 024 [email or web address] [id number], [address] [place] [address] [place], [place], [id number], 4 18:27:54 bupivacaine HCl 0.5 % (5 mg/mL) injection solution 2023 024 [email or web address] [facility] #[id number], [address] [place], [place], [id number], 4 12:28:47 Kenalog 10 mg/mL suspension for injection 2023 024 [email or web address] [facility] #[id number], [address], [place], [id number], 4 12:28:47 Patient TargetsNo targets recorded. Patient InstructionsNo instructions recorded. Reason for Referral None Reported. Results Created Date Observation Date Name Description Value Unit Range Abnormal Flag Note LastModifiedBy Organization Detail LastModifiedTime 10/30/1910/29/2021 LIPID PANEL cholesterol 232 mg/dL 140-19 9 high NIH INGRIS NSUS RECOM MENDA TION FOR LADONNA STERO L: ADULT CHILD LOW RISK: <200 <170 BORDE RLINE : <200- 239 ----- HIGH RISK: >240 >200 Not Available [facility] (Lab) [address] [place], [address], 10/29/2021 15:54:44 10/30/19 22 10/29/2021 LIPID PANEL triglyceride s 96 mg/dL 0-150 NIH INGRIS NSUS REPOR T RECOM MENDA TION FOR TRIGL YCERI MARIANO: ADULT CHILD LOW RISK: <150 ----- BODER LINE: 150-1 99 ----- HIGH RISK: >200 ----- Not Available [facility] (Lab) [address] [place], [address], 10/29/2021 15:54:44 10/30/19 22 10/29/2021 LIPID PANEL HDL cholesterol 57 mg/dL 40- Not Available [facility] (Lab) [address] [place], [address], 10/29/2021 15:54:44 10/30/19 22 10/29/2021 LIPID PANEL LDL cholesterol, calculated 156 mg/dL 0-130 high NIH INGRIS NSUS REPOR T RECOM MENDA TIONS FOR LDL: ADULT CHILD LOW RISK <130 <110 (OPTI MAL LDL) <100 ----- BORDE RLINE : 130-1 59 ----- HIGH RISK: >160 >130 A TRIGL YCERI DE RESUL T >400 INVAL IDATE S THE CALCU LATIO N FOR LDL FRACT IONAT ION - THE LDL RESUL T WILL NOT BE REPOR DILLAN. Not Available [facility] (Lab) [address] [place], [address], 10/29/2021 15:54:44 10/30/19 22 10/29/2021 COMPR EHENS JENNIFER METAB OLIC PANEL sodium 136 mmol/ L 137-14 5 low Not Available [facility] (Lab) [address] [place], [address], 10/29/2021 15:54:39 10/30/19 22 10/29/2021 COMPR EHENS JENNIFER METAB OLIC PANEL potassium 4.0 mmol/ L 3.5-5. 1 Not Available [facility] (Lab) [address] [place], [address], 10/29/2021 15:54:39 10/30/19 22 10/29/2021 COMPR EHENS JENNIFER METAB OLIC PANEL chloride 102 mmol/ L 98-107 Not Available [facility] (Lab) [address] [place], [address], 10/29/2021 15:54:39 10/30/19 22 10/29/2021 COMPR EHENS JENNIFER METAB OLIC PANEL carbon dioxide 27 mmol/ L 22-30 Not Available [facility] (Lab) [address] [place], [address], 10/29/2021 15:54:39 10/30/19 22 10/29/2021 COMPR EHENS JENNIFER METAB OLIC PANEL anion gap 11.0 mmol/ L 14-22 low Not Available [facility] (Lab) [address] [place], [address], 10/29/2021 15:54:39 10/30/19 22 10/29/2021 COMPR EHENS JENNIFER METAB OLIC PANEL glucose 86 mg/dL 70-99 Not Available [facility] (Lab) [address] [place], [address], 10/29/2021 15:54:39 10/30/19 22 10/29/2021 COMPR EHENS JENNIFER METAB OLIC PANEL BUN 16 mg/dL 8-19 Not Available [facility] (Lab) [address] [place], [address], 10/29/2021 15:54:39 10/30/19 22 10/29/2021 COMPR EHENS JENNIFER METAB OLIC PANEL creatinine 0.97 mg/dL 0.66-1 .25 Not Available [facility] (Lab) [address] [place], [address], 10/29/2021 15:54:39 10/30/19 22 10/29/2021 COMPR EHENS JENNIFER METAB OLIC PANEL GFR >60 Refer ence Range : [place] ge GFR Healt hy Adult : >60 mL/mi n/1.7 3 m2 Chron ic Kidne y Disea se: 15-60 mL/mi n/1.7 3 m2 Kidne y Failu re: <15/m L/min /1.73 m2 www.n iddk. nih.g ov The MDRD study equat ion has not been valid ated in child anitha <18 years of age; pregn ant women ; the elder ly >85 years of age; or in some racia l or ethni c subgr oups, such as Hispa nics. Outsi de the valid ated shantel eters , estim ated GFR is less accur ate, requi ring clini samm judgm ent on a case- by-ca se basis . Clini samm inter preta tion for other races and ages must be made by the clini jony. The MDRD study equat ion has not been valid ated for the evalu ation of serum creat inine relat ed to nutri frances l statu s or medic ation usage . For perso ns <18 years of age, a pedia tric GFR calcu lator is avail able on the [facility] websi te: https ://ww w.kid rachel.o rg/pr ofess ional s/kdo qi/gf r_cal culat or Not Available [facility] (Lab) [address] [place], [address], 10/29/2021 15:54:39 10/30/19 22 10/29/2021 COMPR EHENS JENNIFER METAB OLIC PANEL alkaline phosphatase 77 U/L 38-126 Not Available [facility] (Lab) [address] [place], [address], 10/29/2021 15:54:39 10/30/19 22 10/29/2021 COMPR EHENS JENNIFER METAB OLIC PANEL alanine aminotransfe rase 15 U/L 0-35 Not Available [facility] (Lab) [address] [place], [address], 10/29/2021 15:54:39 10/30/19 22 10/29/2021 COMPR EHENS JENNIFER METAB OLIC PANEL aspartate aminotransfe rase 23 U/L 15-37 Not Available [facility] (Lab) [address] [place], [address], 10/29/2021 15:54:39 10/30/19 22 10/29/2021 COMPR EHENS JENNIFER METAB OLIC PANEL bilirubin, total 0.80 mg/dL 0.20-1 .30 Not Available [facility] (Lab) [address] [place], [address], 10/29/2021 15:54:39 10/30/19 22 10/29/2021 COMPR EHENS JENNIFER METAB OLIC PANEL calcium 10.0 mg/dL 8.4-10 .2 Not Available [facility] (Lab) [address] [place], [address], 10/29/2021 15:54:39 10/30/19 22 10/29/2021 COMPR EHENS JENNIFER METAB OLIC PANEL total protein 7.4 g/dL 6.3-8. 2 Not Available [facility] (Lab) [address] [place], [address], 10/29/2021 15:54:39 10/30/19 22 10/29/2021 COMPR EHENS JENNIFER METAB OLIC PANEL albumin 4.5 g/dL 3.0-4. 4 high Not Available [facility] (Lab) [address] [place], [address], 10/29/2021 15:54:39 10/30/19 22 10/29/2021 COMPR EHENS JENNIFER METAB OLIC PANEL globulin 2.9 g/dL 2.6-4. 2 Not Available [facility] (Lab) [address] [place], [address], 10/29/2021 15:54:39 10/30/19 22 10/29/2021 COMPR EHENS JENNIFER METAB OLIC PANEL A/G ratio 1.6 ratio 1.0-2. 0 Not Available [facility] (Lab) [address], [place], [address], 10/29/2021 15:54:39 10/25/19 22 12/26/2014 bone densi ty No observ ation record ed. [id number] Not Available 04/16/2022 15:16:46 10/25/19 22 12/26/2014 MAMMO , lashae draper, digit al, bilat eral No observ ation record ed. [id number] Not Available 04/16/2022 15:16:46 10/30/19 22 10/29/2021 LDCT, chest , for lung cance r lashae draper [facility] [address] [facility] [place] [address] Patien t Name: SARAHY HOOPER Access ion #: [id number] Sex: F : 1955 4 Locati on: MOP Attend ing Physic jenise: CASSY MCCORMICK ER Orderi ng Physic jenise: CASSY MCCORMICK ER Exam Date: 022 1:57 PM Exam Name: CT LOW DOSE CNCR SCREEN ING Admitt ing Diagno sis(es ): RADIOL OGY REPORT - FINAL EXAM: CT LOW DOSE CNCR SCREEN ING HISTOR Y: nicoti ne depend ence 66-yea r-old female smoker with lung cancer screen ing. COMPAR FARIDA: Chest x-ray dated 2020. TECHNI QUE: CT low dose lung screen ing protoc ol was utiliz ed. Noncon trast axial images were obtain ed using low dose comput erized tomogr aphy. Images were recons tructe d in williamson l, sagitt al, and axial planes . The images were review ed with lung window , soft tissue , and bone window settin gs. This CT exam was perfor med using one or more of the follow ing dose reduct ion techni ques: Automa dillan exposu re contro l, adjust ment of the mA and/or kV accord ing to patien t size, or use of iterat jennifer recons tructi on techni que. FINDIN GS: Page 1 of 2 [facility] Karen reyna Name: SARAHY HOOPER Access ion #: [id number] Sex: F : 1955 4 Exam Date: 1:57 PM Exam Name: CT LOW DOSE CNCR SCREEN ING Admitt ing Diagno sis(es ): No suspic ious pulmon saadia nodule s, consol idativ e infilt rates, pneumo thorax , pleura l effusi ons, or pulmon saadia edema. There are mild ground -glass opacit ies in the anteri or aspect of the left upper lobe. There is parase ptal and centri lobula r emphys douglas, greate st in the upper lobes. The heart is border line enlarg ed. There are williamson ry artery calcif icatio ns. No suspic ious medias tinal or axilla ry adenop athy. No thorac ic aortic aneury sm. The centra l pulmon saadia arteri es are ectati c. There is a retroc ardiac hiatal hernia measur ing up to 6.6 cm transv erse. There are right veterinary microbiologist ior hepati c simple cysts. There is thorac ic degene rative disc diseas e. IMPRES FELECIA: 1. No suspic ious pulmon saadia nodule s are identi fied bilate rally. 2. Ground -glass opacit ies in the left upper lobe may be due to mild pneumo benito or chroni c inters titial lung diseas e. Compar farida with old CT scan of the chest would be necess saadia to make this distin ction. 3. Parase ptal and centri lobula r emphys douglas. 4. Williamson ry artery diseas e. 5. Modera te-siz ed hiatal hernia . Lung-R ADS 1. Negati ve. Contin ue annual screen ing with LDCT in 12 months . Create d and electr onical ly signed by: Viktor rose MD Signed Date: 2:29 PM (CT) Dictat ed by: Viktor rose MD DD: 2:29 PM (CT) DT: 2:29 PM (CT) Page 2 of 2 [id number] [facility] (Imaging) [address], [place], [address], 04/16/2022 15:16:46 11/07/19 22 11/06/2021 DEXA, axial skele ton [facility] [address] [facility] [address], [place] [address] [facility] t Name: SARAHY HOOPER Access ion #: [id number] Sex: F : 1955 9 Locati on: RAD Attend ing Physic jenise: CASSY MCCORMICK Orderi ng Physic jenise: CASSY MCCORMICK ER Exam Date: 022 2:03 PM Exam Name: XR DEXA-H IPS PELVIS SPINE Admitt ing Diagno sis(es ): RADIOL OGY REPORT - FINAL EXAM: XR DEXA-H IPS PELVIS SPINE HISTOR Y: MENOPA USAL COMPAR FARIDA: 2014 TECHNI QUE: TECHNI QUE: Dual energy x-ray of absorp tion examin ation of the bilate ral hips and lumbar spine in AP projec tion was perfor med. FINDIN GS: Lumbar Spine (L1-L4 ): The mean bone minera l densit y is 1.09 g/cm2 hydrox yapati te, correl ating with a T-scor e of -0.8 repres enting 6.6 decrea se from 2014. Bilate ral hips: The mean bone minera l densit y is 0.993 g/cm2 calciu m Page 1 of 2 [facility] t Name: SARAHY HOOPER Access ion #: [id number] Sex: F : 1955 9 Exam Date: 022 2:03 PM Exam Name: XR DEXA-H IPS PELVIS SPINE Admitt ing Diagno sis(es ): hydrox yapati te, correl ating with a T-scor e of -0.1 repres enting a 9.1% decrea se from 2014. IMPRES FELECIA: 1. The patien t's lumbar spine T-scor e is consis tent with a normal bone densit y. 2. The patien t's bilate ral hip T-scor e is consis tent with a normal bone densit y. Accord ing to the World Health Organi zation , T-scor e values greate r than -1.0 are normal , values betwee n -1.0 and -2.5 are catego rized as osteop enia, T-scor e of -2.5 or more are catego rized as osteop orosis . Create d and electr onical ly signed by: Josafat roche MD Signed Date: 4:40 PM (CT) Dictat ed by: Josafat roche MD DD: 4:40 PM (CT) DT: 4:40 PM (CT) Page 2 of 2 [id number] [facility] (Imaging) [address] [place], [address], 04/16/2022 15:16:46 11/29/19 22 11/28/2021 XR, chest , 2 view [facility] [address] [place] [address] Patien t Name: SARAHY HOOPER Access ion #: [id number] Sex: F : 1955 1 Locati on: RAD Attend ing Physic jenise: CASSY MCCORMICK ER Orderi ng Physic jenise: CASSY MCCORMICK ER Exam Date: 2021 3:11 PM Exam Name: XR CHEST 2V Admitt ing Diagno sis(es ): RADIOL OGY REPORT - FINAL EXAM: XR CHEST 2V HISTOR Y: ACUTE BRONCH ITIS 66-yea r-old female with cough and chest pain. COMPAR FARIDA: Chest x-ray dated 2020; CT scan of the chest dated 2021. TECHNI QUE: 2 views of the chest were perfor med. FINDIN GS: No pneumo thorax , pleura l effusi ons, pulmon saadia edema, or consol idativ e infilt rates. Emphys ematou s change s are better charac terize d on prior CT scan. The heart is not enlarg ed. No fractu res are identi fied about the bony thorax . IMPRES FELECIA: Page 1 of 2 [facility] Patien t Name: SARAHY HOOPER Access ion #: [id number] Sex: F : 1955 1 Exam Date: 2021 3:11 PM Exam Name: XR CHEST 2V Admitt ing Diagno sis(es ): Emphys douglas withou t eviden ce of acute intrat horaci c proces s. Create d and electr onical ly signed by: Viktor rose MD Signed Date: 2021 4:59 PM (CT) Dictat ed by: Viktor rose MD DD: 2021 4:59 PM (CT) DT: 2021 4:59 PM (CT) Page 2 of 2 [id number] [facility]) [address] [place], [address], 04/16/2022 15:16:46 05/27/19 24 XR, shoul dario, 2 or more view No observ ation record ed. [email or web address] [facility] [place] [address], [place], [address], 05/28/2023 21:22:58 05/29/19 24 05/04/2023 XR, shoul dario, 2 or more view No observ ation record ed. [email or web address] Not Available 2023 08:51:16 06/09/[address], angio gram, chest , w/ contr ast No observ ation record ed. [email or web address] Not Available 2023 16:43:29 06/09/19 24 XR, shoul dario No observ ation record ed. [email or web address] Not Available 2023 16:43:33 06/09/19 24 XR, chest No observ ation record ed. [email or web address] Not Available 2023 16:43:37 Result Notes Documentation Provider Name and Address Organization Details Recorded Time Ldct, Chest, For Lung Cancer Screening : [facility] [address] [place] [address] Patient Name: JESSICA HOOPER Sex: F : 1955 Location: [facility] Attending Physician: PARKER MCCORMICK Ordering Physician: PARKER MCCORMICK Exam Date: 10/29/2021 1:57 PM Exam Name: CT LOW DOSE CNCR SCREENING Admitting Diagnosis(es): RADIOLOGY REPORT - FINAL EXAM: CT LOW DOSE CNCR SCREENING HISTORY: nicotine dependence 66-year-old female smoker with lung cancer screening. COMPARISON: Chest x-ray dated 07/12/2020. TECHNIQUE: CT low dose lung screening protocol was utilized. Noncontrast axial images were obtained using low dose computerized tomography. Images were reconstructed in coronal, sagittal, and axial planes. The images were reviewed with lung window, soft tissue, and bone window settings. This CT exam was performed using one or more of the following dose reduction techniques: Automated exposure control, adjustment of the mA and/or kV according to patient size, or use of iterative reconstruction technique. FINDINGS: Page 1 of 2 [facility] Patient Name: JESSICA HOOPER Sex: F : 1955 Exam Date: 10/29/2021 1:57 PM Exam Name: CT LOW DOSE CNCR SCREENING Admitting Diagnosis(es): No suspicious pulmonary nodules, consolidative infiltrates, pneumothorax, pleural effusions, or pulmonary edema. There are mild ground-glass opacities in the anterior aspect of the left upper lobe. There is paraseptal and centrilobular emphysema, greatest in the upper lobes. The heart is borderline enlarged. There are coronary artery calcifications. No suspicious mediastinal or axillary adenopathy. No thoracic aortic aneurysm. The central pulmonary arteries are ectatic. There is a retrocardiac hiatal hernia measuring up to 6.6 cm transverse. There are right posterior hepatic simple cysts. There is thoracic degenerative disc disease. IMPRESSION: 1. No suspicious pulmonary nodules are identified bilaterally. 2. Ground-glass opacities in the left upper lobe may be due to mild pneumonia or chronic interstitial lung disease. Comparison with old CT scan of the chest would be necessary to make this distinction. 3. Paraseptal and centrilobular emphysema. 4. Coronary artery disease. 5. Moderate-sized hiatal hernia. Lung-RADS 1. Negative. Continue annual screening with LDCT in 12 months. Created and electronically signed by: Viktor Gibbons MD Signed Date: 10/29/2021 2:29 PM (CT) Dictated by: Viktor Gibbons MD (CT) (CT) Page 2 of 2 Not Available [facility] 04/16/2022 15:16:47 Dexa, Axial Skeleton : [address] [address] Patient Name: JESSICA HOOPER Jacqueline Sex: F : 1955 Location: [facility] Attending Physician: PARKER MCCORMICK Ordering Physician: PARKER MCCORMICK Exam Date: 11/06/2021 2:03 PM Exam Name: XR DEXA-HIPS PELVIS SPINE Admitting Diagnosis(es): RADIOLOGY REPORT - FINAL EXAM: XR DEXA-HIPS PELVIS SPINE HISTORY: MENOPAUSAL COMPARISON: 12/26/2014 TECHNIQUE: TECHNIQUE: Dual energy x-ray of absorption examination of the bilateral hips and lumbar spine in AP projection was performed. FINDINGS: Lumbar Spine (L1-L4): The mean bone mineral density is 1.09 g/cm2 hydroxyapatite, correlating with a T-score of -0.8 representing 6.6 decrease from 2015. Bilateral hips: The mean bone mineral density is 0.993 g/cm2 calcium Page 1 of 2 [facility] Patient Name: JESSICA HOOPER Jacqueline Sex: F : 1955 Exam Date: 11/06/2021 2:03 PM Exam Name: XR DEXA-HIPS PELVIS SPINE Admitting Diagnosis(es): hydroxyapatite, correlating with a T-score of -0.1 representing a 9.1% decrease from 2015. IMPRESSION: 1. The patient's lumbar spine T-score is consistent with a normal bone density. 2. The patient's bilateral hip T-score is consistent with a normal bone density. According to the World Health Organization, T-score values greater than -1.0 are normal, values between -1.0 and -2.5 are categorized as osteopenia, T-score of -2.5 or more are categorized as osteoporosis. Created and electronically signed by: Josafat Berg MD Signed Date: 11/06/2021 4:40 PM (CT) Dictated by: Josafat Berg MD (CT) (CT) Page 2 of 2 Not Available [facility] 04/16/2022 15:16:47 Xr, Chest, 2 View : [address] [address] Patient Name: JESSICA HOOPER Sex: F : 1955 Location: [facility] Attending Physician: PARKER MCCORMICK Ordering Physician: PARKER MCCORMICK Exam Date: 11/28/2021 3:11 PM Exam Name: XR CHEST 2V Admitting Diagnosis(es): RADIOLOGY REPORT - FINAL EXAM: XR CHEST 2V HISTORY: ACUTE BRONCHITIS 66-year-old female with cough and chest pain. COMPARISON: Chest x-ray dated 07/12/2020; CT scan of the chest dated 10/29/2021. TECHNIQUE: 2 views of the chest were performed. FINDINGS: No pneumothorax, pleural effusions, pulmonary edema, or consolidative infiltrates. Emphysematous changes are better characterized on prior CT scan. The heart is not enlarged. No fractures are identified about the bony thorax. IMPRESSION: Page 1 of 2 [facility] Patient Name: JESSICA HOOPER Sex: F : 1955 Exam Date: 11/28/2021 3:11 PM Exam Name: XR CHEST 2V Admitting Diagnosis(es): Emphysema without evidence of acute intrathoracic process. Created and electronically signed by: Viktor Gibbons MD Signed Date: 11/28/2021 4:59 PM (CT) Dictated by: Viktor Gibbons MD (CT) (CT) Page 2 of 2 Not Available [facility] 04/16/2022 15:16:47 Problems Name Problem SNOMED Code Status Onset Date Resolution Date Notes Provider Name and Address Organization Details Recorded Time Acute bronchiti s 79129047 Active 2017 Not Available [facility] 3 15:13:48 Chronic obstructi ve pulmonary disease 38508038 Active 2016 Not Available [facility] 3 15:13:48 Anxiety state [id number] Completed Not Available [facility] 3 15:13:48 Gastroeso phageal reflux disease 985277934 Active Not Available [facility] 3 15:13:48 Dyspnea 336578481 Active 2021 Not Available [facility] 3 15:13:48 Wax in ear canal 958143654 Completed Not Available [facility] 3 15:13:48 Lesion of liver 062181606 Active 2017 Not Available [facility] [facility] 3 15:13:48 Obesity 770177596 Active Not Available [facility] 3 15:13:48 Pain of bilateral knee joints 38719735336 4104 Completed 202110/23/2021 Not Available [facility] 3 15:13:49 Hyperlipi demia 15914484 Active Not Available [facility] 3 15:13:49 Essential hypertens ion 28920918 Active Not Available [facility] 3 15:13:49 Allergic rhinitis 20094384 Active Not Available [facility] 3 15:13:49 Thrombocy tosis 7770079 Active 2020 Not Available [facility] 3 15:13:49 Pain of elbow region 13233016 Completed Not Available [facility] 3 15:13:49 Smoker 64622398 Active Not Available [facility] 3 15:13:49 Hiatal hernia 07571723 Active 2017 Not Available [facility] 3 15:13:49 Conjuncti vitis 6795069 Completed Not Available [facility] 3 15:13:50 Pain of right shoulder joint 32545489283 417548 Active 2023 Susi Lamb RMJacqueline null, [place] [facility] 4 11:36:38 Pain of left shoulder joint 00243143018 644635 Active 2023 Susi Lamb RMJacqueline null, [place] [facility] 4 11:45:19 Bilateral shoulder joint pain 04180973532 392065 Active 2023 Ellen Oden null, [place] [facility] 4 10:54:07 Bilateral rotator cuff tendiniti s 60361946448 663222 Active 2023 BARBER Majano [address], [address], [place], [address] , [facility] 4 12:20:33 Bilateral shoulder osteoarth ritis 36376517121 9108 Active 2023 BARBER Majano [address], [address], [place], [address] , [facility] 4 12:20:52 Problem Notes None recorded. Medical Equipment None Reported. Allergies Allergen ID Allergen Name Allergen Category Reaction Reaction Severity Criticality Documentation Date Start Date Code Code System Note Provider Name and Address Organization Details Recorded Time 54802 ibuprofen medicatio n abdominal pain severe Not available 04/16/2022 5640 RxNorm Not Available [facility] 3 15:16:42 Medications Name Sig Start Date Stop Date Status Note LastModified by Organization Details LastModified Time celecoxib 200 mg capsule TAKE 1 CAPSULE BY MOUTH TWICE DAILY active Not Available Not Available No t Available cyclobenz aprine 10 mg tablet 03/04 completed Not Available Not Available Not Available prednison e 10 mg tablet Take by oral route. 06/30 completed Not Available Not Available Not Available venlafaxi ne ER 75 mg capsule,e xtended release 24 hr active Not Available Not Available Not Available doxycycli ne hyclate 100 mg capsule TK 1 C PO BID FOR 7 DAYS active Not Available Not Available No t Available tizanidin e 2 mg tablet TAKE 1 TABLET BY MOUTH THREE TIMES DAILY NEEDED FOR MUSCLE SPASMS active Not Available Not Available No t Available Pain Reliever (acetamin ophen) 325 mg tablet 10/24 completed Not Available Not Available Not Available cetirizin e 10 mg tablet Take 1 tablet every day by oral route as needed. 07/07 completed Not Available Not Available Not Available atorvasta tin 10 mg tablet Take 1 tablet every day by oral route. 05/20 completed Not Available Not Available Not Available azithromy patricia 250 mg tablet TAKE 2 TABLETS (500 MG) BY ORAL ROUTE ONCE DAILY FOR 1 DAY THEN 1 TABLET (250 MG) BY ORAL ROUTE ONCE DAILY FOR 4 DAYS 02/06 completed Not Available Not Available Not Available ibuprofen 800 mg tablet Take 1 tablet 3 times a day by oral route. active Not Available Not Available No t Available meloxicam 15 mg tablet TAKE 1 TABLET BY MOUTH EVERY DAY active Not Available Not Available No t Available ondansetr on HCl 4 mg tablet TK 1 T PO BID 09/01 completed Not Available Not Available Not Available Medrol (Walter) 4 mg tablets in a dose pack take as directed on the package 03/17 completed Not Available Not Available Not Available bupivacai ne HCl 0.5 % (5 mg/mL) injection solution Take 40 mg by injectio n route. 2023 active Not Available Not Available Not Avai lable prednison e 20 mg tablet TAKE 1 TABLET BY MOUTH TWICE DAILY FOR 5 DAYS 11/28 completed Not Available Not Available Not Available tramadol 50 mg tablet TAKE 1 TABLET BY MOUTH EVERY 6 HOURS NEEDED FOR PAIN active Not Available Not Available No t Available triamtere ne 37.5 mg-hydroc hlorothia zide 25 mg capsule TAKE 1 CAPSULE DAILY active Not Available Not Available No t Available prednison e 10 mg tablets in a dose pack Take 1 tab by mouth, 3 times a day for 3 daysTake 1 tab by mouth 2 times a day for 2 daysTake 1 tab by mouth once a day for 1 day 06/30 completed Not Available Not Available Not Available meloxicam 7.5 mg tablet TAKE 1 TABLET BY MOUTH TWICE DAILY 11/28 completed Not Available Not Available Not Available prednisol one acetate 1 % eye drops,jorge pension 04/19 completed Not Available Not Available Not Available temazepam 15 mg capsule active Not Available Not Available Not Available dicyclomi ne 20 mg tablet 07/07 completed Not Available Not Available Not Available ciproflox acin 0.3 % eye drops INSTILL 1 DROP INTO AFFECTED EYE(S) BY OPHTHALM IC ROUTE EVERY 2 HOURSWHI LE AWAKE FOR 2 DAYS THEN 1 DROP EVERY 4 HRS WHILE AWAKE FOR 5 DAYS 04/07 completed Not Available Not Available Not Available Kenalog 10 mg/mL suspensio n for injection Take 40 mg by injectio n route. 2023 active [facility]: [phone] 06-05 Not Available Not Available Not Available benzonata te 100 mg capsule TAKE ONE CAPSULE BY MOUTH EVERY 8 HOURS NEEDED FOR COUGH 03/17 completed Not Available Not Available Not Available cephalexi n 500 mg capsule TAKE 1 CAPSULE BY MOUTH EVERY 8 HOURS 05/26 completed Not Available Not Available Not Available clotrimaz ole-betam ethasone 1 %-0.05 % topical cream APPLY TO THE AFFECTED AND SURROUND ING AREAS OF SKIN BY TOPICAL ROUTE 2 TIMES PER DAY IN THE MORNING AND EVENING FOR 2 WEEKS active Not Available Not Available No t Available lansopraz ole 30 mg capsule,d elayed release take 1 po qd active Not Available Not Available No t Available naproxen 500 mg tablet,de layed release TAKE 1 TABLET BY MOUTH EVERY DAY NEEDED FOR PAIN active Not Available Not Available No t Available docusate sodium 100 mg capsule TAKE 1 CAPSULE BY MOUTH EVERY DAY active Not Available Not Available No t Available triamtere ne 37.5 mg-hydroc hlorothia zide 25 mg tablet 04/07 completed Not Available Not Available Not Available monteluka st 10 mg tablet Take 1 tablet every day by oral route. active Not Available Not Available No t Available ibuprofen 600 mg tablet TAKE 1 TABLET BY MOUTH EVERY 6 HOURS NEEDED FOR PAIN 11/28 completed Not Available Not Available Not Available levofloxa patricia 500 mg tablet Take 1 tablet every 24 hours by oral route for 7 days. active Not Available Not Available No t Available estradiol 0.01% (0.1 mg/gram) vaginal cream INSERT 1 GRAM VAGINALL Y EVERY NIGHT FOR 2 WEEKS THEN INSERT 1 GRAM VAGINALL Y 2 TIMES A WEEK THEREAFT ER active Not Available Not Available No t Available albuterol sulfate HFA 90 mcg/actua tion aerosol inhaler INHALE 2 PUFFS BY MOUTH EVERY 4 HOURS NEEDED 05/20 completed Not Available Not Available Not Available fluticaso ne propionat e 50 mcg/actua tion nasal spray,jorge pension SHAKE LIQUID AND USE 1 SPRAY IN EACH NOSTRIL DAILY active Not Available Not Available No t Available sertralin e 50 mg tablet Take 1 tablet every day by oral route. 2013 active Not Available Not Available Not Avai lable naproxen 500 mg tablet TAKE 1 TABLET BY MOUTH TWICE DAILY NEEDED FOR PAIN active Not Available Not Available No t Available amoxicill in 875 mg-potass ium clavulana te 125 mg tablet TAKE 1 TABLET BY MOUTH EVERY 12 HOURS 05/26 completed Not Available Not Available Not Available oxycodone 5 mg tablet TAKE 1 TABLET BY MOUTH EVERY 6 HOURS NEEDED 11/28 completed Not Available Not Available Not Available Symbicort 160 mcg-4.5 mcg/actua tion HFA aerosol inhaler Inhale 1 puff twice a day by inhalati on route. active Not Available Not Available No t Available diclofena c 1 % topical gel APPLY 2 GRAMS TO AFFECTED AREA FOUR TIMES DAILY 11/28 completed Not Available Not Available Not Available Suprep Bowel Prep Kit 17.5 gram-3.13 gram-1.6 gram oral solution active Not Available Not Available Not Available Chantix Starting Month Box 0.5 mg (11)-1 mg (42) tablets in dose pack Take twice a day by oral route. 09/29 completed take as directed Not Available Not Available Not Available Combivent Respimat 20 mcg-100 mcg/actua tion solution for inhalatio n 09/29 completed Not Available Not Available Not Available Vitals Date Recorded Body height Body mass index (BMI) Body weight Provider Name and Address Organization Details Last Updated DateTime 05/27/2023 160.02 cm 32.1 kg/m2 23020.22 g AUGUST Mcmillan [facility] [employer] [facility] 05/27/2023 11:33:38 Date Recorded Body height Provider Name an d Address Organization Details Last Updated DateTime 06/05/2023 160.02 cm Ellen Oden [facility] [employer] [facility] 06/05/2023 10:53:27 Date Recorded Body height Body mass index (BMI) Body weight Provider Name and Address Organization Details Last Updated DateTime 07/15/2023 160.02 cm 31.9 kg/m2 01344.63 g Susi Lamb Jacqueline [facility] [employer] [facility] 07/15/2023 10:55:54 Date Recorded Body mass index (BMI) Body height Oxygen saturation Oxygen saturation in Arterial blood by Pulse oximetry Heart rate Body weight Systolic blood pressure Diastolic blood pressure Provider Name and Address Organization Details Last Updated DateTime 2 31.4 kg/m2 163.83 cm 98 % 98 % 78 /min 61699.1 8 g 130 mm[Hg] 90 mm[Hg] Not Available [facility] 3 15:12:38 Date Recorded Body mass index (BMI) Body height Oxygen saturation Oxygen saturation in Arterial blood by Pulse oximetry Heart rate Respiratory rate Body temperature Body weight Systolic blood pressure Diastolic blood pressure Provider Name and Address Organization Details Last Updated DateTime 2 31.3 kg/m2 163.83 cm 97 % 97 % 102 /min 18 /min 97 [degF] 28406.5 9 g 118 mm[Hg] 70 mm[Hg] Not Available [facility] 3 15:12:38 Social History Question Answer Notes LastModified by Organizat ion Details LastModified Time Tobacco Smoking Status Current Every Day Smoker 4 cigars a day Not Available [facility] 04/16/2022 15:12:21 What Is Your Level Of Caffeine Consumption? None [id number] Information not available 04/16/2022 How Much Tobacco Do You Chew? None [id number] Information not available 04/16/2022 What Type Of Diet Are You Following? REGULAR [id number] Information not available 04/16/2022 Which Illicit Or Recreational Drugs Have You Used? None [id number] Information not available 04/16/2022 What Was The Date Of Your Most Recent Tobacco Screening? 05/27/2023 [email or web address] Information not available 05/27/2023 At What Age Did You Start Smoking Tobacco? 52 [id number] Information not available 04/16/2022 Do You Use Sunscreen Routinely? No [id number] Information not available 04/16/2022 Sex: Female Functional Status Question Answer Note LastModified by Organizat ion Details LastModified Time What is your level of alcohol consumption? 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 Occasional [id number] 26 Information not available 04/16/2022 Mental Status None recorded. Family History Relationship Description Onset Age of this Age Resolved Age Notes LastModified by Organization Details LastModified Time Mother Essential hypertension [id number] Not available 04/16/2022 15:12:31 Medical History Condition Response ANXIETY DISORDER Y HEARTBURN / REFLUX Y HYPERTENSION Y Gynecological HistoryNo gynecological history recorded. Obstetrics History GPAL:G 0 P 0 0 0 0 Past Encounters Encounter ID Performer Location Encounter Start Date Encounter Closed Date Diagnosis/Indication Diagnosis SNOMED-CT Code Diagnosis ICD10 Code Diagnosis Note [id number] MD [facility] [address] [place] [address] 07/11/2020 00:00:00 07/11/2020 17:49:03 [id number] MD [facility] [address] [place] [address] 11/28/2020 00:00:00 11/28/2020 14:50:46 [id number] MD [facility] [address] [place] [address] 02/06/2021 00:00:00 02/06/2021 12:36:48 [id number] MD [facility] [address] [place] [address] 10/24/2021 00:00:00 10/24/2021 13:49:01 [id number] MD [facility] [address] [place] [address] 11/28/2021 00:00:00 11/28/2021 15:38:33 [id number] Viktor Espinoza MD [facility] [place] [address] [place] [address] 05/27/2023 11:12:31 05/27/2023 13:51:09 Pain of right shoulder joint 5966172194 4860958 M25.511 Pain of le ft shoulder joint 7035441623 1233006 M25.643 [id number] Viktor Espinoza MD [facility] [place] [address] [place] [address] 06/05/2023 10:49:17 06/05/2023 11:29:59 Bilateral shoulder joint pain 0906971248 7653961 M25.511 M25.512 Bilateral rotator cuff tendinitis 6292946791 5361618 M67.813 M67.814 Bilateral shoulder osteoarthritis 0645864705 13120 M19.011 M19.216 [id number] Viktor Espinoza MD [facility] [place] [address] [place] [address] 07/15/2023 10:51:26 07/15/2023 11:55:51 Bilateral shoulder joint pain 7632726137 7459576 M25.511 M25.512 Health Concerns Section Related Observation LastModified by Organization Detai ls LastModified Time None Recorded Concern Status LastModified by Organization Details LastModified Time None Recorded Advance Directives Directive None Recorded Payers Insurance Date Sequence Insurance Name Policy Number Policy Cutler Covered Member ID Cutler Member ID Guarantor Name 07/12/2023 1 [facility] (MEDICARE REPLACEMENT/A DVANTAGE - HMO) [id number] Jessica Hooper [id number] Jessica Hooper 05/27/2023 1 BREE [id number] Jessica Hooper [id number] Jessica Hooper Notes Date Note Type Note Provider Name and Address Organization Details Recorded Time 06/05/2023 text/html the patient returns she recently saw our nurse practitioner with Dr. Espinoza she was noted to have bilateral shoulder pain ongoing for almost a year by her report. Recently since February it has been much worse left worse than right. She denies any specific trauma or injury other than lifting a heavy case of water that it has increased her pain since February. She went through a course of physical therapy but states this started to hurt her arms too much so she stopped taking it. She also had tried naproxen and oral steroids. She was offered a shot of cortisone she declined states she was too afraid the injections. There is also discussion about possible MRI scan however she is declined that as well. She is finally decided that she would like shots of cortisone both shoulders. She does have some weakness in the left pain in the right she is very anxious and tearful with any exam maneuvers and even talking about injections causes her to go into near panic mode with sobbing and crying. It is difficult to get a good take on a good physical exam because of her anxiety and distress over thinking about getting shots. It does appear she has some weakness on the left compared to the right she certainly has more pain in the left shoulder on the right with range of motion. She comes in today for cortisone injections bilateral shoulders. BARBER Majano [address], [facility] [address], [place], [address], [facility] 06/05/2023 12:21:15 OBGyn Episode No OBEpisode recorded.
--- OUTSIDE RECORDS SUMMARY | 2024-08-15 11:32 | XMS_ITS | Clinical Summary ---
Author Organization [facility] Address [address] [place] [address] Care Team Providers Care Jack Spinner Name Role Phone Marko Duvall MD Primary Care Provider [phone] Source Comments [facility],non-owned Affiliates and Associated Physician Practices is amultiple site organization consisting of ambulatory clinics and hospital sitesin [place], [place], [place] and [place]. This disclosure is being madepursuant to the Care Everywhere program and may not contain all information available regarding this patient. Last updated 17.[facility] Allergies No known active allergies Medications * Be aware that medications may not be up to date on this document. Alwaysverify current medications with the patient. lansoprazole (PREVACID) 30 MG capsule 9 Active albuterol HFA (PROVENTIL;JAMAL TOLIN;PROAIR) 108 (90 Base) MCG/ACT inhaler Inhale 2 puffs by mouth every 4 hours 0 Active triamterene-hy droCHLOROthiaz bernardo (DYAZIDE) 37.5-25 MG capsule Take 1 capsule by mouth once daily 1 Active oxyCODONE, immediate release, (ROXICODONE) 5 MG tablet Take 1 (one) tablet by mouth every 6 hours as needed 15 tablet 1 Active Additional Information Patient not taking.Reported on 09/03/2020 acetaminophen (TYLENOL) 325 MG tablet Take 2 (two) tablets by mouth every 6 hours Maximum allowable Acetaminophen amount = 4 Grams (4000 mg) / 24 hours. 30 tablet 1 1 Active docusate sodium (COLACE) 100 MG capsule Take 1 (one) capsule by mouth 2 times daily 60 capsule 1 1 Active polyethylene glycol 3350 (MIRALAX) 17 g packet Take 17 (seventeen) g by mouth once daily as needed for Constipation 60 packet 1 1 Active Additional Information Patient not taking.Reported on 09/03/2020 ibuprofen (MOTRIN) 600 MG tablet Take 1 (one) tablet by mouth every 6 hours as needed for Pain 30 tablet 1 Active meloxicam (MOBIC) 7.5 MG tablet Take 1 (one) tablet by mouth 2 times daily 30 tablet 1 Active Additional Information Patient not taking.Reported on 09/03/2020 diclofenac sodium (VOLTAREN) 1 % gel Apply 2 (two) g to affected area 4 times daily 100 g 1 Active Additional Information Patient not taking.Reported on 09/03/2020 estradiol (ESTRACE) 0.1 MG/GM vaginal cream Insert 1g into the vagina nightly for 2 weeks. Then insert 1g into the vagina two times a week thereafter. 1 tube 3 1 Active Active Problems Problem Noted Date Diagnosed [...] = 0.6 oz pur e alcohol) Comments No Sex and Gender Information Value Date Recorded Sex Assigned at Not on file Legal Sex Female 5:54 PM HAND REAMER Gender Identity Not on file Sexual Orientation [...] 1:46 PM CDT Height 161.3 cm (5' 3.5) 09/03/2020 1:46 PM CDT Body Mass Index [...] VACCINE (1 - 2023-2 5 season) 2023 DEPRESSION SCREENING 02/17/2024 INFLUENZA VACCINE (Season Ended) 2024 PAP with HPV 04/02/2025 04/02/2020 HEPATITIS B VACCINE Aged Out No longe r eligible based on patient's age to complete this topic HIB VACCINE Aged Out No longer eligi ble based on patient's age to complete this topic HPV VACCINE Aged Out No longer eligi ble based on patient's age to complete this topic MENINGOCOCCAL (Group B) VACC INE SHARED DECISION-MAKING Aged Out No longer eligibl e based on patient's age to complete this topic MENINGOCOCCAL GROUPS A/C/Y/W VACCINE Aged Out No longer eligible b ased on patient's age to complete this topic Procedures Procedure Name Priority Date/Time Associated Diagnosis Comments COMPREHENSIVE METABOLIC PANEL STAT 08/09/2020 12:54 PM CDT HPV DETECTION HIGH RISK JOJO Routine 04/02/2020 9:40 AM HAND REAMER Cervical cancer screening from Last 3 Months or Most Recently Relevant to Health Maintenance Results * COMPREHENSIVE METABOLIC PANEL (08/09/2020 12:54 PM CDT) Glucose 90 70 - 105 mg/dL 08/09/2020 1:29 PM CDT [facility] Sodium 139 136 - 145 mmol/L 08/09/2020 1:29 PM CDT [facility] Potassium 3.9 3.5 - 5.1 mmol/L 08/09/2020 1:29 PM CDT [facility] Chloride 103 98 - 107 mmol/L 08/09/2020 1:29 PM CDT [facility] CO2 27 23 - 31 mmol/L 08/09/2020 1:29 PM CDT [facility] Calcium 10.3 8.4 - 10.4 mg/dL 08/09/2020 1:29 PM CDT [facility] Anion Gap 9 8 - 18 mmol/L 08/09/2020 1:29 PM CDT [facility] BUN 13 9.8 - 20.1 mg/dL 08/09/2020 1:29 PM CDT [facility] Creatinine 0.92 0.57 - 1.11 mg/dL 08/09/2020 1:29 PM CDT [facility] Alkaline Phosphatase 86 40 - 150 U/L 08/09/2020 1:29 PM CDT [facility] ALT 19 0 - 61 U/L 08/09/2020 1:29 PM CDT [facility] AST 14 5 - 34 U/L 08/09/2020 1:29 PM T [facility] Protein Total 7.7 6.4 - 8.3 gm/dL 08/09/2020 1:29 PM CDT [facility] Albumin 4.2 3.2 - 4.6 gm/dL 08/09/2020 1:29 PM T [facility] Bilirubin Total 0.3 0.2 - 1.2 mg/dL 08/09/2020 1:29 PM T [facility] eGFR by MDRD >60 >60 mL/min/1.7 3m2 08/09/2020 1:29 PM T [facility] eGFR by MDRD >60 >60 mL/min/1.7 3m2 08/09/2020 1:29 PM T [facility] Blood BLOOD SPECIMEN / Unknown Venipuncture / Unknown 08/09/2020 12:54 PM CDT 08/09/2020 1:11 PM CDT Nidia Melendez PA-C LAB - CHEMISTRY ORDERABLES Final Result [facility] [address] [place], [place] [id number] * HPV DETECTION HIGH RISK JOJO (04/02/2020 9:40 AM HAND REAMER) High Risk Human Papilloma Result Not detected Not detected 04/04/2020 4:46 PM HAND REAMER [facility] High Risk Human Papilloma Interp 04/04/2020 4:46 PM HAND REAMER [facility] Comment:High Risk Human Pramod lloma Virus was Not Detected. Pathology/Cytolo gy MISCELLANEOUS SAMPLES / Unknown 04/02/2020 9:40 AM HAND REAMER 04/04/2020 11:47 AM HAND REAMER Narrative [facility] - 04/04/2020 4:46 PM HAND REAMER Nucleic acid isolated from the specimen was analyzed with a nucleic acid amplification test (FDA approved Gen-Probe HPV Assay) to detect high risk human papilloma virus (Types: 16, 18, 31, 33, 35, 39, 45, 51, 52, 56, 58, 59, 66, and 68). The reference range is Not Detected. Comment: These test results should not be used as the sole basis for clinical assessment and treatment of patients. These results should always be correlated with other available data (cytology, histology, and clinical information). Hamida Medrano MD LAB - MICROBIOLOGY ORDERABL ES Final Result [facility] [address] [phone] from Last 3 Months or Most Recently Relevant to Health Maintenance Insurance [id number] [place] [address] MEDICARE Care Teams Jack Spinner Relationship Specialty Start Date End Date Marko Duvall MD 4 [facility] [address] [place] [address] PCP - General 10/09/14
--- OUTSIDE RECORDS SUMMARY | 2024-08-15 11:32 | XMS_ITS | Clinical Summary ---
Author Organization [facility] Health Address [address] [place] [address] Care Team Providers Care Capacity Planning Manager Name Role Phone Unavailable Primary Care Provider [...] 01/26/2017 Astigmatism of both eyes 12/03/2016 Overview (09/25/2020): [...] 35.9 C (96.6 F) 01/23/2021 3:16 PM SOFTBALL UMPIRE Respiratory Rate - - Oxygen Saturation - - Inhaled Oxygen Concentration - - Weight - - Height - - Body Mass Index - - Plan of Treatment Health Maintenance Due Date Last Done Comments Dental X-Ray: Bitewings 03/29/2021 09/25/2020 Periodontal Maintenance 10/25/2021 07/24/2021, 04/24, 01/23/2021 Dental Oral Exam 10/26/2021 04/24/2021, 09/25/2020 Scaling and Root Planing 11/07/2022 021, 10/24/2020, 09/25/2020, Additional history exists Dental X-Ray: Full Mouth 09/27/2023 09/25/2020 Dental X-Ray: Panoramic 09/27/2023 09/25/2020 Procedures Procedure Name Priority Date/Time Associated Diagnosis Comments PERIO MAINTENANCE Routine 07/24/2021 1:0 0 PM CDT PERIODIC ORAL EVALUATION - ESTABLISHED PATIENT Routine 04/24/2021 1:00 PM SOFTBALL UMPIRE UL PERIODONTAL SCALING AND ROOT PLANING - FOUR OR MORE TEETH PER QUADRANT Routine 10/24/2020 2:00 PM CDT PANORAMIC RADIOGRAPHIC IMAGE Routine 09/25/2020 2:00 PM CDT INTRAORAL - COMPREHENSIVE SERIES OF RADIOGRAPHIC IMAGES Routine 09/25/2020 2:00 PM CDT from Last 3 Months or Most Recently Relevant to Health Maintenance Insurance Member Subscriber Plan / Payer (Ef fective 2019-Present) Name:Jessica Hooper Relation to Subscriber:Self Name:Jessica Hooper Payer ID:[id number] Type:Not on file Address: [address] [address]
--- OUTSIDE RECORDS SUMMARY | 2024-08-15 11:32 | XMS_ITS | Encounter Summary ---
Author Organization [facility] Address [address] [place] [address] Care Team Providers Care Product Demonstrator Name Role Phone Unavailable Primary Care Provider Unavailabl e Reason for Referral * Laboratory Services (Routine) - Open Specialty Diagnoses / Procedures Referred By Contac t Referred To Contact Diagnoses Essential thrombocytosis (CMS/HCC) Procedures JAK2 MUTATION Bola Kaiser MD [address] [place] [address] Phone: tel: fax: Referral ID Status Reason Start Date Expiration Date Visits Re quested Visits Authorized [id number] Open 08/15/2024 09/15/2025 1 1 Reason for Visit * Reason Comments Establish Care Encounter Details Date Type Department Care Team (Late st Contact Info) Description 08/15/2024 10:30 AM CDT Office Visit [facility] Oncology and Hematology - Juan Carlos [address] [place] [address] [address] [place] [address] Bola Kaiser MD [address] [place] [phone] Essential thrombocytosis (CMS/HCC) (Primary Dx) Social History Tobacco Use Types Packs/Day Years [...] on file 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 Problem list There is no problem list on file for this patient. Previous TREATMENT ? Measurable Disease ? Reason for Visit Jessica Hooper is a 69 y.o. female who was referred for consultation for thrombocytosis. History of present illness This is a pleasant 69-year-old -[place] female with history of type 2 diabetes, hyperlipidemia and gastroesophageal reflux disease referred to me for elevated platelet count. Patient had CBC done on August 2023 that showed platelet count of 486,000. Repeat CBC on March 2024 showed plateletcount of 449,000. She has been dealing with left lower extremity sciatica discomfort and the right index finger soreness for which she just completed antibiotic without much relief. He denies any previous history of thromboembolic event including stroke and heart attack. She is taking baby aspirin just started recently. She denies any other new complaints. Past Medical History Past Medical History: Diagnosis Date Congestive heart failure (CHF) (CMS/HCC) Hyperlipidemia Hypertension Peptic ulcer Surgical History Past Surgical History: Procedure Laterality Date HX HYSTERECTOMY Medications Current Outpatient Medications Medication Sig Dispense Refill atorvastatin (LIPITOR) 10 mg tablet Take by mouth. lansoprazole (PREVACID SoluTab) 30 mg Tablet,Rapid Dissolve, DR Take by mouth. triamterene-hydroCHLOROthiazide (DYAZIDE) 37.5-25 mg capsule Take by mouth. No current facility-administered medications for this visit. Allergies No Known Allergies Immunizations: There is no immunization history on file for this patient. Family History Family History Problem Relation Name Age of Onset Prostate Cancer Father Heart Disease Brother Heart Disease Brother Heart Disease Brother No Known Problems Child Social History Social History Tobacco Use Smoking status: Every Day Types: Cigars Smokeless tobacco: Never Substance Use Topics Alcohol use: Yes Comment: occasional Review of Systems Constitutional: Patient did not mention fever; no night sweats; no anorexia; no weight loss; no fatique NEENT: Patient did not mention headache; no change in vision; no change in hearing; no sore throat;no dysphagia Respiratory: Patient did not mention shortness of breath; no pleuritic chest pain; no cough; no hemoptysis Cardiac: Patient did not mention cardiac-like chest pain; no palpitations; no orthopnea; no PND; noDOE Breasts: Patient did not mention tenderness; no masses GI: Patient did not mention abdominal pain; no nausea; no vomiting; no diarrhea; no hematochezia; no melena : Patient did not mention dysuria; no frequency; no hesitancy; no hematuria GEOTHERMAL POWERPLANT SUPERVISOR: Musculosketetal: Patient did not mention bone pain; no arthralgia; no joint swelling; no myalgia; Skin: Patient did not mention pruritis; no rash; no petechiae; no ecchymoses Endocrine: Patient did not mention polydipsia; no polyuria; no unusual weight gain Neuro: Patient did not mention headache; no change in vision; no sensory changes; no muscle weakness; no confusion; no seizures Psych: Patient did not mention anxiety; no depression; Physical Exam Vitals: As per nursing note Constitutional: Well developed, well nourished, no acute distress, non-toxic appearance Teeth and gum. No signs of infection or swelling. Eyes: PERRL, conjunctiva normal HEENT: Atraumatic, external ears normal, nose normal, oropharynx moist, no pharyngeal exudates. no sinus tenderness Neck- normal range of motion, no tenderness, supple Respiratory: No respiratory distress, normal breath sounds, no rales, no wheezing Cardiovascular: Normal rate, normal rhythm, no murmurs, no gallops, no rubs GI: Soft, nondistended, normal bowel sounds, nontender, no splenomegaly, no hepatomegaly, no mass, no rebound, no guarding : No costovertebral angle tenderness Musculoskeletal: No edema, no tenderness, no deformities. Back- no tenderness Integument: Well hydrated, no rash, Digits and nails inspection normal Lymphatic: No lymphadenopathy noted Neurologic: Alert & oriented x 3, CN 2-12 normal, normal motor function, normal sensory function, no focal deficits noted Psychiatric: Speech and behavior appropriate ? labs No results found for this or any previous visit (from the past 24 hours). Labs from March 2024 showed WBC 8.6 hemoglobin 14.2 MCV 87.3 platelet 449,000 Pathology ? Imaging & Other Studies Performance Status? Assessment / Plan: ? Thrombocytosis. 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 She denies any history of thromboembolic events including stroke and heart attack. She was just recently started on baby aspirin. She has been dealing with left lower extremity sciatica discomfort in the right index finger soreness for which she just completed course of antibiotic recently. I have discussed the differential diagnosis of thrombocytosis that include reactive thrombocytosis and possibility of essential thrombocythemia. I will order the workup that will include CBC with differential, CMP, C-reactive protein, sedimentation rate, ferritin level and JAK2 mutation. She will continue baby aspirin and based on the repeat testing will decide about hydroxyurea therapy. I have answered all the questions to patient satisfaction. Follow-up with me in 2 weeks. Hypertension. Patient is on Dyazide. Hyperlipidemia. She is on Lipitor. GERD. She is on Prevacid. Thank you very much for allowing me to participate in Jessica Hooper's evaluation and management. Please feel free to contact if I can be of any further assistance in your patient???s care requiring hematology or oncology evaluation. Sincerely, ? ? Bola Kaiser M.D. cell TOBACCO COUNSELING She is not a tobacco/nicotine user. Bola Kaiser MD ,08/15/2024 10:52 AM ? Total time spent 60 minutes, two third of the total time spent counseling patient [id number]. CC:?Meagan Hall PA-C documented in this encounter Plan of Treatment Upcoming Encounters Date Type Department Care Team (Late st Contact Info) Description 08/29/2024 4:30 PM CDT Telephone Check Up [facility] Oncology and Hematology - Juan Carlos [address] [facility] [address] [place] [phone] Bola Kaiser MD [address] [facility] [address] [place] [address] Scheduled Orders Name Type Priority Associated Diagnoses Orde r Schedule CBC WITH DIFFERENTIAL Lab Stat Essential thrombocytosis (CMS/HCC) Expected: 08/15/2024, Expires: 08/15/2025 COMPREHENSIVE METABOLIC PANEL Lab Stat Essential thrombocytosis (CMS/HCC) Expected: 08/15/2024, Expires: 08/15/2025 JAK2 MUTATION Lab Routine Essential thrombocytosis (CMS/HCC) Expected: 08/15/2024, Expires: 08/15/2025 FERRITIN Lab Routine Essential thrombocytosis (CMS/HCC) Expected: 08/15/2024, Expires: 08/15/2025 SEDIMENTATION RATE Lab Routine Essential thrombocytosis (CMS/HCC) Expected: 08/15/2024, Expires: 08/15/2025 C-REACTIVE PROTEIN Lab Routine Essential thrombocytosis (CMS/HCC) Expected: 08/15/2024, Expires: 08/15/2025 documented as of this encounter Visit Diagnoses Diagnosis Essential thrombocytosis (CMS/HCC)- Primary Essential thrombocythemia documented in this encounter
[2024-08-15 16:29] LABS: Alanine Aminotransferase 21 U/L (6-35); Albumin Level 4.5 g/dL (3.5-5.1); Alkaline Phosphatase 83 U/L (38-126); Anion Gap 11 mmol/L (4-12); Aspartate Amino Transferase 95 U/L (14-36); Bilirubin,Total 0.6 mg/dL (0.2-1.3); Blood Urea Nitrogen 17 mg/dL (7-17); CRP. < 0.5 mg/dL (<1.0); Calcium 9.9 mg/dL (8.4-10.2); Carbon Dioxide 26 mmol/L (22-30); Chloride 104 mmol/L (98-107); Estimated Glomerular Filt Rate 57; Glucose 81 mg/dL (65-110); Potassium 3.6 mmol/L (3.4-5.0); Sodium 141 mmol/L (137-145)
[2024-08-15 16:44] LABS: Erythrocyte Sedimentation Rate 4 mm/hr (0-20)
== END 2024-08-15 10:55 | disposition home or self-care (01) ==
LOC: ANHLAB 10:55
PROVIDERS: PCP Family Medicine; Visit Provider Internal Medicine Hematology & Oncology
DX: D47.3 Essential (hemorrhagic) thrombocythemia (principal)
CPT/HCPCS: 36415; 80053; 81270; 82728; 85025; 85652; 86140

== ENCOUNTER 2024-09-30 11:29 | Outpatient (CLI) | payer MEDICARE, SELFPAY ==
--- NOTE | ~2024-09-30 | MR_ITS ---
MRI of the lumbar spine Clinical History: Spondylosis Technique: Axial T2-weighted images, and sagittal T1-weighted, T2-weighted, and T2 fat-sat images wer e acquired. Findings: No fracture identified. There is 3 mm anterolisthesis of L3 over L4. No suspicious bone mar row signal abnormality seen. At L1-L2 and L2-L3, the intervertebral discs maintain normal signal and position. No disc bulge or he rniation at these levels. There is mild to moderate facet arthropathy. No spinal canal stenosis or ne ural foraminal narrowing at these levels. At L3-L4, there is degenerative disc narrowing with diffuse disc bulge and severe facet arthropathy. There is resultant severe spinal canal stenosis/thecal sac compression. There is mild bilateral neura l foraminal narrowing. At L4-L5, there is mild diffuse disc bulge. No spinal canal stenosis. There is mild bilateral neural foraminal narrowing. At L5-S1, there is diffuse disc bulge/protrusion with moderate facet arthropathy. There is minimal ce ntral canal stenosis. There is mild to moderate bilateral neural foraminal narrowing. Paravertebral soft tissues are unremarkable. Impression: Severe degenerative spondylosis at L3-L4, as detailed above. Moderate degenerative spondylosis at L5-S1, as above. 3 mm anterolisthesis of L3 over L4. Reviewed, dictated and finalized at [facility]. Impression: Severe degenerative spondylosis at L3-L4, as detailed above. Moderate degenerative spondylosis at L5-S1, as above. 3 mm anterolisthesis of L3 over L4.
--- OUTSIDE RECORDS SUMMARY | 2024-09-30 11:33 | XMS_ITS | Encounter Summary ---
Author Organization [facility] Health Address [address] [place] [address] Care Team Providers Care Slag Skimmer Name Role Phone Unavailable Primary Care Provider Unavailabl e Prior Encounters Date Type Department Care Team Description 08/12/2021 1:00 PM CDT Office Visit [facility] [address] [place] [address] Chandu Rao DDS 07/24/2021 1:00 PM CDT Office Visit [facility] [address] [place] [address] Tiffanie Cho, [facility] 04/24/2021 1:00 PM PRODUCT SAFETY TEST ENGINEER Office Visit [facility] [address] [place] [address] Crystal Pimentel, [facility] 04/24/2021 1:00 PM PRODUCT SAFETY TEST ENGINEER Office Visit [facility] [address] [place] [address] Tiffanie Cho, [facility] 01/23/2021 Travel 01/23/2021 3:00 PM PRODUCT SAFETY TEST ENGINEER Office Visit [facility] [address] [place] [address] Tiffanie Cho, [facility] 10/24/2020 Travel 10/24/2020 2:00 PM CDT Office Visit [facility] [address] [place] [address] Tiffanie Cho, [facility] 09/25/2020 2:30 PM CDT Office Visit [facility] [address] [place] [address] Tiffanie Cho, [facility] 09/25/2020 Travel 09/25/2020 2:00 PM CDT Office Visit [facility] [place] [phone] Crystal Pimentel, DMD Last Filed Vital Signs Vital Sign Reading Time Taken Comments Blood Pressure 124/72 07/24/2021 12:56 PM CDT Pulse 77 07/24/2021 12:56 PM CDT Temperature 35.9 C (96.6 F) 01/23/2021 3:16 PM PRODUCT SAFETY TEST ENGINEER Respiratory Rate - - Oxygen Saturation - [...] - ESTABLISHED PATIENT Routine 04/24/2021 1:00 PM PRODUCT SAFETY TEST ENGINEER ORAL HYGIENE INSTRUCTIONS Routine 2021 1:00 PM PRODUCT SAFETY TEST ENGINEER PERIO MAINTENANCE Routine 04/24/2021 1:0 0 PM PRODUCT SAFETY TEST ENGINEER ORAL HYGIENE INSTRUCTIONS Routine 2020 3:00 PM PRODUCT SAFETY TEST ENGINEER PERIO MAINTENANCE Routine 01/23/2021 3:0 0 PM PRODUCT SAFETY TEST ENGINEER LL SHRUTI DECON ONE TO THREE TEETH/QUAD [...] CDT Visit Diagnoses Not on file Insurance [facility] PPO
--- OUTSIDE RECORDS SUMMARY | 2024-09-30 11:33 | XMS_ITS | Clinical Summary ---
Author Organization [facility] Address [address] [place] [address] Care Team Providers Care Precipitator Supervisor Name Role Phone Marko Duvall MD Primary Care Provider [phone] Source Comments [facility],non-owned Affiliates and Associated Physician Practices is amultiple site organization consisting of ambulatory clinics and hospital sitesin [place]. This disclosure is being madepursuant to the Care Everywhere program and may not contain all information available regarding this patient. 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 Gender Identity Not on file Sexual Orientation [...] season) 2023 DEPRESSION SCREENING 02/17/2024 INFLUENZA VACCINE (#1) 2024 HEPATITIS B VACCINE Aged Out No longe [...] - 1.2 mg/dL 08/09/2020 1:29 PM CDT [facility] eGFR by MDRD >60 >60 mL/min/1.7 3m2 08/09/2020 1:29 PM CDT [facility] eGFR by MDRD >60 >60 mL/min/1.7 3m2 08/09/2020 1:29 PM CDT [facility] Blood BLOOD SPECIMEN / Unknown Venipuncture / Unknown 08/09/2020 12:54 PM CDT 08/09/2020 1:11 PM CDT Nidia Melendez PA-C LAB - CHEMISTRY ORDERABLES Final Result Performing Organization Address [facility]/State/[facility] Co de Phone Number [facility] [address] [place], [place] [phone] from Last 3 Months or Most Recently Relevant to Health Maintenance Insurance [employer] [facility] Address: [facility] [id number] [place] [address] MEDICARE Care Teams Precipitator Supervisor Relationship Specialty Start Date End Date Marko Duvall MD [address] [facility] [address] [place] [address] PCP - General 10/09/14
--- OUTSIDE RECORDS SUMMARY | 2024-09-30 11:33 | XMS_ITS | Clinical Summary ---
Author Organization [facility] Address [address] [place] [address] Care Team Providers Care Director Instructional Material Name Role Phone Unavailable Primary Care Provider [...] 35.9 C (96.6 F) 01/23/2021 3:16 PM DIRECTOR OF SEARCH ENGINE OPTIMIZATION Respiratory Rate - - Oxygen Saturation - [...] - ESTABLISHED PATIENT Routine 04/24/2021 1:00 PM DIRECTOR OF SEARCH ENGINE OPTIMIZATION UL PERIODONTAL SCALING AND ROOT PLANING - [...] Hooper Relation to Subscriber:Self Name:Jessica Hooper Payer ID:[id number] Type:Not on file Address: [address] [address]
--- OUTSIDE RECORDS SUMMARY | 2024-09-30 11:33 | XMS_ITS | Clinical Summary ---
Author Organization [facility] Rhona goss Tanisha Address [address] [place] [address] Care Team Providers Care Scale Adjuster Name Role Phone Unavailable Primary Care Provider Unavailabl e Allergies No known active allergies Medications atorvastatin (LIPITOR) 10 mg tablet Take by mouth. 04/02/2022 Active lansoprazole (PREVACID SoluTab) 30 mg Tablet,Rapid DR Obie Take by mouth. 04/02/2022 Active triamterene-hydr oCHLOROthiazide (DYAZIDE) 37.5-25 mg capsule Take by mouth. 04/07/2022 Active Active Problems No known active problems Encounters Date Type Department Care Team Description 09/20/2024 External Device Data [facility] ABSTRACTION Provider, Abstract 08/31/2024 External Device Data [facility] ABSTRACTION Provider, Abstract 08/30/2024 External Device Data [facility] ABSTRACTION Provider, Abstract 08/29/2024 4:30 PM CDT Telephone Check Up [facility] Oncology and Hematology - Juan Carlos [address] [place] [address] Bola Kaiser MD Essential thrombocytosis (CMS/HCC) (Primary Dx) 08/17/2024 Orders Only [facility] Oncology and Hematology - Juan Carlos [address] [place] [address] Bola Kaiser MD 08/16/2024 External Device Data STL ABSTRACTION Provider, Abstract 08/16/2024 External Device Data ST[facility] ABSTRACTION Provider, Abstract 08/16/2024 External Device Data ST[facility] ABSTRACTION Provider, Abstract 08/16/2024 Orders Only [facility] Oncology and Hematology Juan Carlos [address] [place] [address] Bola Kaiser MD 08/16/2024 Abstract [facility] Oncology and Hematology - Juan Carlos [address] [place] [address] Bola Kaiser MD 08/15/2024 10:30 AM CDT Office Visit [facility] Oncology and Hematology Juan Carlos [address] [place] [address] Bola Kaiser MD Essential thrombocytosis (CMS/HCC) (Primary [...] on file 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 Gender Identity Not on file Sexual Orientation [...] Care Team (Late st Contact Info) Description 12/02/2024 12:30 PM CDT Office Visit [facility] Oncology and Hematology - Juan Carlos [address] [place] [address] Bola Kaiser MD [address] [facility] [address] [place] [address] Health Maintenance Due Date Last Done Comments Pre-Diabetes and Diabetes Screening 1954 DTAP/TDAP/TD VACCINES (1 - Tdap) 1973 PNEUMOCOCCAL VACCINE 50+ YEARS (1 of 2 - PCV) 07/19/18 74 BREAST CANCER SCREENING 1994 COLORECTAL SCREENING 07/20/1999 Colorectal Cancer Screening 07/20/1999 FIT-DNA Q 3 years 07/20/1999 FIT/FOBT Q 1 year 07/20/1999 Flex Sig/CT Colonography Q 5 years 07/20/1999 ZOSTER VACCINE (1 of 2) 2004 RSV VACCINE (60+ or ) (1 - Risk 60-74 years 1-dose series) 2014 OSTEOPOROSIS SCREENING 07/20/2019 INFLUENZA VACCINE (#1) 2024 Procedures Procedure Name Priority Date/Time Associated Diagnosis Comments COMPREHENSIVE METABOLIC PANEL Routine 08/15/2024 1:02 PM CDT FERRITIN Routine 08/15/2024 10:23 AM CDT from Last 3 Months Results * COMPREHENSIVE METABOLIC PANEL (08/15/2024 1:02 PM CDT) Blood Bola Kaiser MD CHEMISTRY ORDERABLES Final Resu lt * FERRITIN (08/15/2024 10:23 AM CDT) Blood us Bola Kaiser MD CHEMISTRY ORDERABLES Final Resu lt from Last 3 Months Insurance [facility] [id number] [place] [id number]
== END 2024-09-30 11:30 | disposition home or self-care (01) ==
PROVIDERS: PCP Family Medicine
DX: M47.816 Spondylosis without myelopathy or radiculopathy, lumbar region (principal); M54.30 Sciatica, unspecified side; M54.9 Dorsalgia, unspecified
CPT/HCPCS: 72148